=== PATIENT | male | born 1950 | race Caucasian/White ===

== ENCOUNTER → 2019-07-19 14:24 | Outpatient (CLI) | payer MEDICARE, SELFPAY | PROVIDERS: Referring Provider Orthopaedic Surgery; Visit Provider Orthopaedic Surgery | DX: R22.42 Localized swelling, mass and lump, left lower limb (principal); Z96.652 Presence of left artificial knee joint | CPT/HCPCS: 87070; 87075; 87077; 87186; 87205 ==

== ENCOUNTER 2019-09-12 09:53 | Inpatient (IN) | payer MEDICARE, SELFPAY ==
--- NOTE | 2019-08-28 10:35 | EKG12_ITS ---
Test Reason : PRE-OP Blood Pressure : / mmHG Vent. Rate : 057 BPM Atrial Rate : 057 BPM P-R Int : 162 ms QRS Dur : 088 ms QT Int : 416 ms P-R-T Axes : 017 -01 017 degrees QTc Int : 404 ms Sinus bradycardia Otherwise normal ECG Confirmed by ELIO JARVIS, LUDY ([id number]), news assignment editor HUBERT ORTIZ ([id number] on 08/29/2019 12:43:38 PM Referred By: FRANCIS HU Confirmed By:LUDY BALLARD MD
[2019-08-28 10:43] LABS: Absolute Lymphocyte Count 1.64 X10^3/uL (0.83-4.51); Absolute Neutrophil Count 4.9 X10^3/uL (2.0-7.7); Basophil# 0.04 X10^3/uL; Basophil% 0.5 % (0-1); Eosinophil# 0.23 X10^3/uL; Eosinophils% 3.1 % (0-5); Hematocrit 37.2 % (40-54); Hemoglobin 11.5 g/dL (13.0-16.5); Lymphocyte # 1.64 X10^3/ul (4.0); Lymphocyte % 22.4 % (19-41); Mean Corp Hgb Conc 30.9 g/dL (32-36); Mean Corpuscular Hgb 27.8 pg (27.0-32.0); Mean Corpuscular Volume 90.1 fL (80-94); Mean Platelet Vol. 8.1 fl (6.2-12.0); Monocyte# 0.51 X10^3/uL; NRBC Flagged by Analyzer 0 % (0-5); Neutrophil # 4.88 X10^3/uL (2.7-7.7); Neutrophil % 66.6 % (47-70); Platelet Count 236 K/mm3 (150-450); RBC Distribution Width CV 14.2 % (11.6-14.6); RBC Distribution Width SD 46.1 fl (35.1-43.9); Red Blood Count 4.13 M/mm3 (4.6-6.2); White Blood Count 7.3 K/mm3 (4.4-11.0)
[2019-08-28 11:10] LABS: Anion Gap 8 (5-15); BUN 24 mg/dL (7-18); BUN/Creat Ratio 31.3 RATIO (10-20); Calcium,Total 8.6 mg/dL (8.5-10.1); Chloride 107 mmol/L (98-107); Creatinine, Serum 0.77 mg/dL (0.70-1.30); EST Glomerular Filtration Rate 106 mL/min (>60); Est Glom Filt Rate - Afr Amer 129 mL/min (>60); Glucose 89 mg/dL (74-106); Potassium 4.3 mmol/L (3.5-5.1); Sodium Level 140 mmol/L (136-145)
--- NOTE | 2019-09-03 21:24 | HP.PCM_ITS ---
History and Physical History and Physical Patient Name: Clement Reina : 1950 From: LIBIA GIRON NP DATE OF SURGERY: 09/12/2019 SCHEDULED PROCEDURE: Explant of left total knee implants with placement of an antibiotic spacer HISTORY OF PRESENT ILLNESS: Preoperative history and physical exam was performed on August 28, 2019. This is a 68-year-old male who tested positive for an infection in the left knee. The patient's initial left total knee arthroplasty was done on December 13, [address] Deshawn Caceres. The patient states he has had pain since his initial total knee arthroplasty. He has been placed on oral antibiotics for pain and erythema in the left knee. The pain is located anterior and medial. The patient reports stiffness in the left knee since the initial surgery. The patient's recent aspiration was positive for staph capitis. The patient is currently on suppressive antibiotics, Doxycycline. He denies chest pain, fevers, chills, shortness of breath or difficulty breathing. The patient has a medical history pertinent for sleep apnea, ulcers and hypertension. After discussion with Dr. Juwan Darling the patient would like to proceed with an explant left total knee with placement of an antibiotic spacer. REVIEW OF SYSTEMS: ROS: Const: Denies change in appetite, fever,or weight change. CV: Denies chest pain, heart murmur and irregular heartbeat. Resp: Denies cough, pneumonia, SOB, tuberculosis and wheezing. GI: Reports heartburn, but denies constipation, diarrhea, difficulty swallowing, nausea, bloody stools and vomiting. : Urinary: denies incontinence. Musculo: Reports leg swelling, limp, trouble walking and weakness. Skin: Denies Raynaud's, history of shingles and tattoo. Neuro: Denies ambulatory dysfunction, dizziness, numbness/tingling and tremor. Psych: Denies anxiety, insomnia and stress. Ismael/Lymph: Denies anemia, bleeding/bruising tendency and past transfusion. Reviewed, no changes. PAST MEDICAL HISTORY: Advance Care Plan: No Advance Directives Effective Date: 09/22/2016 PMH: Medical Problems: Arthritis, Sleep Apnea, Ulcers, High Blood Pressure Accidents: None Surgical Hx: Tonsillectomy Shoulder Arthroscopy Lt - (2003) Knee Arthroscopy LT - (1999) Appendectomy, Nose LT TKR - (12/13/2016) ISAI @ [facility] Back Surgery - (12/08/2017) MOE @ [facility] Anesthesia Complications: None Assistive Devices: Glasses, Cpap Reviewed and updated. SOCIAL HISTORY: SH: Marital: .Occupation: Retired.Work Status: Retired.Hand Dominance: Right- handed. Personal Habits: Smoking: Patient is a former smoker.Cigarette Use: Former.Alcohol: Has consumed alcohol in the past.Drug Use: Denies Use.Enjoy Exercising: Exercises 1-3 X/Week. Reviewed, no changes. VITALS: Ht: 67 Wt: 233lb Wt k.689 BMI: 36.5 BP: 162/72 Pulse: 59 Resp: 16 T: 97.6 T: 36.4C ALLERGIES: No Known Drug Allergy MEDICATIONS: Doxycycline Monohydrate 100 mg 1 by mouth twice a day, Tylenol Arthritis Pain 6 50 mg prn, Osteo Bi-Flex Advanced Double Strength With Joint Shield qd, Megared Superior Benham-3 Krill Oil Extra Strength 500 mg qd, Centrum Silver 50+Men 50+Men qd, [place] 3 1po qday, Aleve 220 mg prn, Terbinafine HCL 250 mg take 1 tablet by mouth once daily, Lisinopril 20 mg take 1 tablet by mouth once daily PRE-OP EXAM: General appearance:NORMAL Other: Eyes: Conjunctivae and lids: NORMAL Pupils: ERR Ears, Nose, Mouth, and Throat: NORMAL Other: Inspection of lips, teeth and gums: NORMAL Other: Respiratory: Assessment of respiratory effort: NORMAL Other: Auscultation of lungs: clear to auscultation no wheezes, rhonchi or rales. Cardiovascular: Auscultation of heart: regular rate and rhythm, no murmurs, gallops or rubs. Gastrointestinal: Exam of abdomen: soft, nontender, nondistended bowel sounds present. Neurological: see below Psychiatric: Orientation to time, place and person: NORMAL Other: Mood and affect: NORMAL Other: PHYSICAL EXAMINATION: The patient ambulates with an antalgic gait. Large effusion in the left knee. Distal portion of the incision with underlying fluctuance. No active drainage. No erythema. Limited range of motion. Stable to varus and valgus stress testing. Sensation intact to saphenous, sural, deep and superficial peroneal and tibial nerve distributions. IMAGING STUDIES: Aspiration on July 19, 2019 was positive for Staph capitis Radiographs of left knee obtained on July 18, 2019 were compared to left knee radiographs obtained in 2019 show progressive lucency below the tibial baseplate and femur. IMPRESSION: 1. Infected left total knee arthroplasty 2. Sleep apnea 3. History of ulcers 4. Hypertension PLAN: Dr. Juwan Darling did discuss and review with the patient all treatment options including surgical versus nonsurgical. The patient does wish to proceed with the above-stated procedure. Potential risk, benefits and complications of the procedure were discussed in detail including but not limited to , infection, nerve and blood vessel damage, persistent pain, numbness, tingling, paresthesia, blood clot, pulmonary embolism and requirement for possible further surgery. The patient expressed full understanding and has no further questions for the doctor. The patient does agree to proceed with the above-stated procedure and has signed the surgery consent form. Discussed with the patient the risks associated with the COVID-19 virus including the risk of exposure while at the hospital. The patient was reassured local hospitals have low infection rates and taken all necessary precautions to limit patient exposure to COVID-19. Limiting the patient's time in the hospital may decrease their exposure to COVID-19. The patient was notified that we will need to comply with any screening or testing the hospital wishes to perform and that surgery may be delayed for any positive test results. This dictation was created using voice recognition software. Phonetic and/or grammatical errors may exist. ___ I have re-examined the patient. There are no clinical changes since date of exam. ___ See progress notes for changes. ___ Dictated on admission Date: Time: Signature:
[2019-09-12] VITALS (11 sets, daily range): BP systolic 135–177; BP diastolic 59–84; PULSE 55–74; RESP 16–18; TEMP 36.1–37.1; O2SAT 94–100; BMI 35.7; BMI 35.8
[2019-09-12 10:31] LABS: Bedside Glucose 89 mg/dL (70-110)
[2019-09-12] MEDS: Acetaminophen 500 MG Tablet 1000 MG PO ×2 (10:39→22:25)
[2019-09-12] MEDS: Celecoxib 200 MG Capsule 400 MG PO (10:40)
[2019-09-12] MEDS: Gabapentin 600 MG Tablet PO (10:40)
[2019-09-12] MEDS: Lactated Ringers 1,000 ML 999 ML IV ×3 (10:51→15:30)
[2019-09-12] MEDS: Lactated Ringers 1,000 ML 75 ML IV (10:53)
[2019-09-12] MEDS: Cefazolin 2 GM in 0.9% Normal Saline 100 ML IV (12:22)
[2019-09-12] MEDS: Lidocaine/D5W 2,000 MG/250 ML IV.SOLN 40 MG IV (12:40)
[2019-09-12] MEDS: Cefazolin 1 GM/5 ML Vial 2 GM OPERA.SITE (14:15)
[2019-09-12] MEDS: Vancomycin IV 1,000 MG/20 ML Vial 6000 MG OPERA.SITE (14:15)
--- NOTE | 2019-09-12 15:27 | RAD_ITS ---
STUDY: X-RAY - LEFT KNEE REASON FOR EXAM: Male, 68 years old. Post op left total knee replacement, ex-plant spacer. TECHNIQUE: 2 view(s) of the knee. COMPARISON: None. FINDINGS: Normal visualized distal femur. Normal visualized proximal tibia and fibula. Normal proximal tibiofibular articulation. Status post knee arthroplasty with suspected recent removal of the tibial component with subcutaneous emphysema and a surgical drain.. The soft tissue structures are unremarkable. RAD/Knee 1 or 2 Views IMPRESSION: Suspect recent removal of tibial component of arthroplasty Electronically Signed: Oswaldo Jiménez MD at 16:34 EDT Tel , Service support ,
--- NOTE | 2019-09-12 15:32 | PCM.OPRPT ---
Report of Operation Date of Procedure: 09/12/19 Pre-Operative Diagnosis: Left knee periprosthetic joint infection. Left knee sinus tract Post-Operative Diagnosis: Left knee periprosthetic joint infection. Left knee sinus tract Surgery/Procedure Performed:: Explant left total knee replacement placement of antibiotic spacer. Left knee placement of nonbiodegradable antibiotic delivery system. Left knee sinus tract excision Description of Surgical Findings:: Sinus tract was excised in its entirety. Went down to the joint into the bone. There was significant femoral-tibial bone loss. mash filter press operator: Munir Izquierdo Type of Anesthesia:: General Anesthesiologist: Amandeep Quiñones Special Medications: 2 g Ancef, 1 g TXA at incision, 1 g TXA closure, 10 mg Decadron, joint cocktail (5 mg Duramorph, 30 mL of 0.5% Ropivicaine, 1000 units of epinephrine, 30 mg of Toradol). Antibiotics in cement Specimen's removed: Specimens for culture were sent from the sinus tract and 3 specimens from the knee. Estimated Blood Loss (mL): 200 Fluids Replaced: 1600 mL crystalloid Description of Procedure: Implants used: Femur: 5 CR distal femur, [place] Tibia: 6, 16mm [place] tibial polyethylene Brief history operative indications: 68-year-old male presented to my office after having total knee replacement. Patient had chronic swelling and stiffness. He developed a draining sinus in the distal portion of the incision. At this time he was diagnosed with infection aspiration showed staph capitis. Patient wished to delay surgery. He was placed on doxycycline. We did discuss two-stage revision. Encouraged him to proceed with surgery in a timely manner. Ultimately we elected to proceed with surgery. Risk and benefits of the procedure were discussed the patient occluding but not limited to blood loss, DVTs, PEs, nervous damage, infection, the risk of anesthesia including loss of life. We also discussed reinfection, continued infection and failure rates of two-stage revision. Patient demonstrated understanding and wished to proceed. Procedure: On the date of procedure patient's left lower extremity was marked in the preoperative area. The patient was then taken back to the operating room where the patient was placed on the table in the supine position. All bony prominences were identified a well-padded. Anesthesia assumed control of the C-spine and airway and remained controlled throughout the remainder of the procedure. A tourniquet was placed on the left upper thigh and the leg was prepped in a sterile fashion. The surgeon then scrubbed at this time. Upon reentering the room right lower extremity was draped in a standard orthopedic fashion. A timeout was then called and everyone agreed upon the side, the site, the procedure to be performed, patient's identity and antibiotics given. Elevation was used to exsanguinate the extremity and the tourniquet was placed up to 250 mmHg with the knee in flexion. A midline skin incision was made using the previous incision and extending it proximally and distally to identify normal tissue planes. The sinus tract was excised and we were able to palpated down to the joint. To the medial tibia. Medial and lateral flaps were developed appropriate releases. The standard medial parapatellar arthrotomy was made and the patella was subluxed laterally. At this time an aggressive synovectomy was performed re-creating the medial gutter first, then the suprapatellar pouch than the lateral gutter. Once this was completed the knee was flexed up an osteotome was used to remove the tibial polyethylene. The remainder of the synovium was debrided. The standard deep MCL release was done and the patella scar pad was resected and lateral releases were performed. Next our attention was directed to the femur. Wear flexible osteotomes and TPS saw were used to break up the implant cement interface. This was done both medially and laterally. After this is adequately lucent bone tamp was used to remove the femur component from the end of the bone. This was done with minimal bone loss. At this time attention was now directed towards the proximal tibia. Possible osteotome and TPS saw were then used to break up the proximal tibia implant interface and stacked osteotomes were used to remove the tibial implant. This was done with minimal bone loss on the implant however, there was significant bone loss from the infection. After removing the implants patella was everted and removed. After this was done we debrided the posterior portion of the synovium. We used a bur to debride any of the synovium on the bony tissue. After thorough debridement, of the synovium we redirected our attention to the bony canals. These canals were reamed. Tibia was reamed to size 16 mm. Femur was reamed to 18 mm. Depth was measured. On the back table cement was mixed with half of the antibiotics for the spacer. 2 dowels were made for the femur and the tibia and were allowed to harden on the back table. While we are mixing the dowels 6 liters of normal saline were irrigated throughout the joint under low-pressure lavage. Then the cement was mixed in a vacuum. Zoltan Simplex cement with tobramycin was used. The wound was copiously irrigated with normal saline. We then trialed for the implants. A size 5 femur and a 60 mm size 6 tibia were selected. Final components were open. Based on the bone defects we elected to cement each 1 individually. Cement dowels were placed in the femoral and tibial canal. Cement was mixed for the femur. Antibiotics were mixed into the cement. During this time the back portion of the tibia was burred creating grooves for the cement. Once this was done we then cemented the femur into place and placed the tibia on the back table. Femoral cement was allowed to harden with the femur and the appropriate alignment. At this time we mixed cement with antibiotics for the tibia. Cement was placed on the tibia. Tibia was cemented into place. Knee was placed in extension while the cement hardened. Once the cement hardened he was taken through range of motion we are able to obtain 90 degrees flexion. Wound was once again copiously out normal saline as well as chlorhexidine solution. Drain was placed laterally. Wound was then closed using #1 Vicryl for the arthrotomy. 2-0 Vicryl for the skin and final skin closure was done with 2-0 nylon suture. A sterile compressive dressing was then placed. Patient was placed in a knee immobilizer. The patient was then awakened from anesthesia, transferred to the [facility] and transferred to the PACU for recovery. Post op plan DVT ppx: ASA 81mg BID, thigh high compression stockings Follow up: in office in 2 weeks for wound check PT: to start POD #0 at hospital for mobilization. Patient will wear a knee immobilizer. No flexion of the knee until the distal wound is adequately healed. My physician medical assistant ob gyn was a vital part of this case. He was important in appropriate retraction during the case, and protection of soft tissues during bony cuts. His intimate knowledge of the case and my steps aided in safe and expedient completion of the procedure as well as appropriate position of the leg during the case. He was also vital in assisting with closure under my direct supervision. - Complications No intraoperative complications - Admit VTE Documentation VTE Present on Admission: No VTE Mechan Device Prophylaxis: SCD's, Thigh High ZHENG Hose VTE Pharm Prophylaxis ordered?: Yes
[2019-09-12] MEDS: Scopolamine 1mg/72hr Patch 1 PATCH TD (16:47)
[2019-09-12] MEDS: Lactated Ringers 1,000 ML 125 ML IV (17:33)
--- NOTE | 2019-09-12 19:40 | NURSING ---
ended ketamine on the apr. given in OR
[2019-09-12] MEDS: oxyCODONE 5 MG Tablet PO (20:05)
--- NOTE | 2019-09-12 20:50 | PCM.RX.CS ---
Consult Type of Consult: New start Suspected Infection: Other Labs: Sodium 140 mmol/L (136-145) 08/28/19 10:22 Potassium 4.3 mmol/L (3.5-5.1) 08/28/19 10:22 Chloride 107 mmol/L (98-107) 08/28/19 10:22 Carbon Dioxide 25.0 mmol/L (21.0-32.0) 08/28/19 10:22 Anion Gap 8 (5-15) 08/28/19 10:22 BUN 24 mg/dL (7-18) H 08/28/19 10:22 Creatinine 0.77 mg/dL (0.70-1.30) 08/28/19 10:22 Est GFR (MDRD) Af Amer 129 mL/min (>60) 08/28/19 10:22 Est GFR (MDRD) Non-Af 106 mL/min (>60) 08/28/19 10:22 BUN/Creatinine Ratio 31.3 RATIO (10-20) H 08/28/19 10:22 Glucose 89 mg/dL (74-106) 08/28/19 10:22 Microbiology: Microbiology 08/28/19 10:22 Swab (Method) Nasal Screen MRSA/MSSA - Final Goal Trough: 15-20 mcg/mL Pharmacy Plan for Drug Dosing: NEW START IV VANCOMYCIN Consulting Physician: DR. COBB Indication:EXPLANT OF THE TOTAL KNEE Goal Trough:15-20 SrCr:0.77 CrCl:98.6 (USING ADJUSTED BODY WEIGHT OF 81.1) Comments: LOADING DOSE 2G X1 ADMIN ON 09/12/19 AT 1924 Vancomcyin Dose:2000MG IV Q12H TO START 09/13/19 AT 0730 Pending Level:TO BE TAKEN AT 0700 ON 09/14/19 Pharmacy Service will continue to monitor and adjust dosing as required.
[2019-09-12] MEDS: Cefazolin 1 GM/50 ML BAG IV (21:19)
[2019-09-12] MEDS: Aspirin 81 MG TAB.CHEW PO (22:24)
[2019-09-12] MEDS: Senna/Docusate Sodium 1 Tablet 2 TABLET PO (22:24)
[2019-09-12] MEDS: Ensure Surgery 237 ML LIQUID PO (22:26)
[2019-09-13 02:49] VITALS: BP 130/59; PULSE 61; RESP 18; TEMP 37; O2SAT 95
[2019-09-13] MEDS: oxyCODONE 5 MG Tablet PO ×4 (02:53→20:00)
[2019-09-13 03:06] VITALS: BMI 35.8
[2019-09-13] MEDS: Cefazolin 1 GM/50 ML BAG IV (04:49)
[2019-09-13 05:52] VITALS: BP 125/55; PULSE 68; RESP 18; TEMP 36.5; O2SAT 93
[2019-09-13] MEDS: Acetaminophen 500 MG Tablet 1000 MG PO ×3 (05:56→21:03)
[2019-09-13 06:01] VITALS: BMI 35.8
[2019-09-13 06:50] LABS: Hematocrit 30.7 % (40-54); Hemoglobin 9.9 g/dL (13.0-16.5); Mean Corp Hgb Conc 32.2 g/dL (32-36); Mean Corpuscular Hgb 28.6 pg (27.0-32.0); Mean Corpuscular Volume 88.7 fL (80-94); Mean Platelet Vol. 8.6 fl (6.2-12.0); Platelet Count 237 K/mm3 (150-450); RBC Distribution Width CV 14.1 % (11.6-14.6); RBC Distribution Width SD 45.4 fl (35.1-43.9); Red Blood Count 3.46 M/mm3 (4.6-6.2); White Blood Count 9.9 K/mm3 (4.4-11.0)
[2019-09-13 07:12] LABS: Anion Gap 4 (5-15); BUN 15 mg/dL (7-18); BUN/Creat Ratio 19.5 RATIO (10-20); Calcium,Total 8.2 mg/dL (8.5-10.1); Chloride 107 mmol/L (98-107); Creatinine, Serum 0.77 mg/dL (0.70-1.30); EST Glomerular Filtration Rate 106 mL/min (>60); Est Glom Filt Rate - Afr Amer 128 mL/min (>60); Estimated Creatinine Clearance 64.26 ml/min; Glucose 110 mg/dL (74-106); Potassium 4.2 mmol/L (3.5-5.1); Sodium Level 140 mmol/L (136-145)
[2019-09-13] MEDS: Aspirin 81 MG TAB.CHEW PO ×2 (07:28→17:31)
[2019-09-13] MEDS: Pantoprazole Sodium 20 MG Tablet PO (07:28)
[2019-09-13] MEDS: Senna/Docusate Sodium 1 Tablet 2 TABLET PO ×2 (07:28→21:03)
[2019-09-13] MEDS: Famotidine 20 MG Tablet PO (07:29)
[2019-09-13] MEDS: Lisinopril 20 MG Tablet PO (07:29)
[2019-09-13] MEDS: Ensure Surgery 237 ML LIQUID PO ×3 (07:31→17:34)
[2019-09-13 07:34] VITALS: BP 105/49; PULSE 73; RESP 16; TEMP 36.6; O2SAT 95
--- NOTE | 2019-09-13 07:58 | CON.PCM_ITS ---
Problem List (1) Infection of prosthetic left knee joint Status: Acute (2) Obstructive sleep apnea Status: Chronic (3) Hypertension Status: Chronic (4) Degenerative joint disease Status: Chronic Reason for Consult Date of Consultation: 09/13/19 Reason for Consultation: Medical management. Infected left total knee implant History of Present Illness: The patient is a 68 year old M with history of left TKR in November [address] Deshawn Caceres was admitted by orthopedic service for scheduled explant of left knee implant with placement of antibiotic spacer. Patient had the procedure on 09/12/2019. Prior to that, patient had constant pain, stiffness in left knee since initial surgery and recent aspiration was positive for staph capitis. Patient patient was on doxycycline. Inpatient, he is on ceftriaxone and vancomycin. Past Medical History Past Medical History (Chronic Problems): Chronic Problems Obstructive sleep apnea (Chronic) Hypertension (Chronic) Degenerative joint disease (Chronic) Allergies No Known Allergies Allergy (Verified 09/12/19 10:27) Home Medications: Ambulatory Orders Medication Instructions Recorded Acetaminophen [Tylenol Arthritis] 2 tab PO TID 08/29/19 Cider Vinegar [Apple Cider Vinegar] 300 mg PO DAILY 08/29/19 Glucosamine/D3/Boswellia Arabella 1 ea PO BID 08/29/19 [Osteo Bi-Flex Tablet] Krill/Om-3/Dha/Epa/Phospho/Ast 1 ea PO DAILY 08/29/19 [Megared [place]-3 Krill Oil Sfgl] Lisinopril 20 mg PO DAILY 08/29/19 Multivit-Min/FA/Lycopen/Lutein 1 ea PO DAILY 08/29/19 [Centrum Silver Men Tablet] Naproxen Sodium [Aleve] 220 mg PO TID 08/29/19 [place]-3 Fatty Acids/Fish Oil [Fish 1 ea PO TID 08/29/19 Oil 1,000 mg Capsule] Omeprazole [Prilosec] 20 mg PO DAILY 08/29/19 Terbinafine HCl 250 mg PO DAILY 08/29/19 Ubidecarenone/Vit E Acet [Co Q-10 1 ea PO DAILY 08/29/19 100 mg Softgel] Ceftriaxone 2 gm IV Q24 40 Days #40 vial 09/13/19 Smoking Status: Former smoker Tobacco Use: Cigarettes - *Family History Maternal History Items: Cancer - Breast cancer Paternal History Items: Heart Disease - Coronary artery disease Review of Systems Constitutional: Denies: Chills, Fever, Weight Change HEENT: Denies: Head Aches, Sinus Congestion, Sinus Drainage Cardiovascular: Denies: Chest Pain, Palpitations Respiratory: Denies: Cough, Shortness of breath at rest, Sputum production Gastrointestinal: Denies: Abdominal Pain, Nausea, Vomiting Genitourinary: Denies: Dysuria Musculoskeletal: Reports: Joint Pain, Joint stiffness, Joint Tenderness, Leg Pain Skin: Denies: Rash, Wounds Neurological: Reports: Balance problems. Denies: Focal weakness, Numbness, Tingling Psychiatric: Denies: Anxiety, Depression, Homicidal Ideations, Suicidal Ideations Hematologic/ Lymphatic: Denies: Easy Bruising, Easy Bleeding Patient Problems: Active and Suspected Problems Infection of prosthetic left knee joint (Acute) Objective: Physical exam General: Alert, Oriented x3, Cooperative HEENT: Atraumatic, PERRLA, EOMI, Normocephalic Oral: No Gingival or Mucosal Lesions/ Ulcerations Neck: Supple, No JVD, Negative Carotid Bruits Lungs: Air entry diminished in bilateral lung bases. No crepitation/rhonchi Cardiovascular: Regular rate, Regular Rhythm, Normal S1, Normal S2, No murmurs Abdomen: Bowel Sounds Present, Soft, Non Tender, Non-Distended : No renal angle tenderness. No suprapubic tenderness. Extremities: No edema, Capillary Refill Less than 3 Seconds Skin: No rashes, No breakdown Musculoskeletal: Left knee surgical dressing with knee immobilizer. No tenderness to other knee or hip joints. Neurological: Cranial nerves II-XII grossly intact, Deep Tendon Reflexes 2+/4 and Symmetrical, Neuro grossly intact Psych/Mental Status: Normal Affect, Appropriate - Physical Exam Vitals/I&O's: Vital Signs Temp Pulse Resp BP Pulse Ox 98 F 73 16 105/49 L 95 09/13/19 07:34 09/13/19 07:34 09/13/19 07:34 09/13/19 07:34 09/13/19 07:34 Oxygen Flow Rate (L/min) 6 Oxygen Delivery Method Room Air Weight: 228 lb 6.382 oz Body Mass Index (BMI) 35.7 Intake and Output for Last 24 Hours 09/11/19 09/12/19 09/13/19 23:59 23:59 23:59 Intake Total 5588.25 / 5588.25 855.33 / 855.33 Output Total 635 / 635 120 / 120 Balance 4953.25 / 4953.25 735.33 / 735.33 Laboratory Results 09/12/19 10:23: POC Glucose 89 09/13/19 06:10: WBC 9.9, RBC 3.46 L, Hgb 9.9 L, Hct 30.7 L, MCV 88.7, MCH 28.6, MCHC 32.2, RDW Std Deviation 45.4 H, RDW Coeff of Claudia 14.1, Plt Count 237, MPV 8.6 09/13/19 06:10: Sodium 140, Potassium 4.2, Chloride 107, Carbon Dioxide 29.0, Anion Gap 4 L, BUN 15, Creatinine 0.77, Estim Creat Clear Calc 64.26, Est GFR (MDRD) Af Amer 128, Est GFR (MDRD) Non-Af 106, BUN/Creatinine Ratio 19.5, Glucose 110 H, Calcium 8.2 L Current Medications Acetaminophen (Tylenol) 1,000 mg PO Q8 [facility] Last Admin: 09/13/19 05:56 Dose: 1,000 mg Documented by: Aspirin (Aspirin, Baby) 81 mg PO BIDCM [facility] Last Admin: 09/13/19 07:28 Dose: 81 mg Documented by: Enteral Nutritional Formula (Ensure Surgery) 237 ml PO TIDCM [facility] Last Admin: 09/13/19 07:31 Dose: 237 ml Documented by: Famotidine (Pepcid) 20 mg PO DAILY [facility] Last Admin: 09/13/19 07:29 Dose: 20 mg Documented by: Vancomycin IV Pharmacy to Dose (1 ea/ Sodium Chloride) 500 mls @ 250 mls/hr IV X1 PRN; Protocol PRN Reason: Rx to Dose Sodium Chloride () 250 mls @ 15 mls/hr IV .[id number] PRN PRN Reason: Saline Flush Last Infusion: 09/13/19 07:27 Dose: 0 mls/hr Documented by: Vancomycin HCl 2,000 mg/ (Sodium Chloride) 540 mls @ 250 mls/hr IV Q12H [facility] Last Admin: 09/13/19 07:26 Dose: 250 mls/hr Documented by: Insulin Human Lispro (Humalog Dipak (Bkc)) 1 - 6 unit SC Q4H PRN PRN; Protocol PRN Reason: BG>/= 180, SEE PROTOCOL Ketorolac Tromethamine (Toradol (Bkc)) 15 mg IV Q6H PRN PRN PRN Reason: Pain Score 1-5/10 Stop: 09/14/19 15:27 Lisinopril (Zestril) 20 mg PO DAILY [facility] Last Admin: 09/13/19 07:29 Dose: 20 mg Documented by: Meloxicam (Mobic) 7.5 mg PO BID [facility] Morphine Sulfate () 2 - 4 mg IV Q2H PRN PRN PRN Reason: Pain Score 6-10/10 Morphine Sulfate () 2 - 4 mg IV Q2H PRN PRN PRN Reason: Pain Score 6-10/10 Non-Formulary Medication (Terbinafine Hcl) 250 mg PO DAILY [facility] Ondansetron HCl (Zofran) 4 mg IV Q8H PRN PRN PRN Reason: NAUSEA Oxycodone HCl (Oxyir) 5 - 10 mg PO Q4H PRN PRN PRN Reason: Pain Score 4-10/10 Last Admin: 09/13/19 06:51 Dose: 10 mg Documented by: Pantoprazole Sodium (Protonix) 20 mg PO DAILY [facility] Last Admin: 09/13/19 07:28 Dose: 20 mg Documented by: Promethazine HCl (Phenergan) 12.5 mg IM Q6H PRN PRN; Protocol PRN Reason: NAUSEA/VOMITING Senna/Docusate Sodium (Senokot-S, Priscila-Colace) 2 tablet PO BID [facility] Last Admin: 09/13/19 07:28 Dose: 2 tablet Documented by: Sodium Chloride () 10 - 40 ml IV UD PRN PRN Reason: SALINE FLUSH Assessment/Plan All Active Problems 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 1. 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 Surgical tissue cultures are pending. Currently patient on vancomycin and ceftriaxone. Had cefazolin during surgery. Seen by ID. PICC line placement and plan for 6 weeks course of IV ceftriaxone. Stop date 10/24/2019. Pain control, PT and OT. 2. Hypertension: Blood pressure is controlled continue lisinopril 20 mg daily. 3. Obstructive sleep apnea: Incentive spirometry. CPAP while inpatient pulmonary follow-up with sleep study test/CPAP titration study. Patient is morbid obese, BMI 35. 4. Mild acute blood loss anemia, postoperative: H&H dropped from 11.5-9.9. Ferrous sulfate 325 mg daily. 5. DVT prophylaxis: Aspirin 81 mg p.o. twice daily. Discharge plan: Home with home health care for IV antibiotic. Inpatient E&M: [id number] Init Hosp L2
--- NOTE | 2019-09-13 08:45 | PN.ORTHO_ITS ---
Subjective: The patient was sitting in bed upon examination. Patient denies any chest pain, shortness of breath, dizziness, lightheadedness, nausea or vomiting, or calf pain. Pain is controlled on medications. No adverse overnight events. Overall patient is doing well this morning. Pain is been controlled on medications. Objective: Vital signs stable and afebrile. Patient is able to plantarflex and dorsiflex actively. Sensation is intact to light touch to saphenous, sural, superficial and deep peroneal, and tibial distribution. Dressing is clean dry and intact. Knee immobilizer in place. Hemovac drain currently with minimal output. There has been a total of 455 cc output Negative Homans bilaterally, negative signs and symptoms of DVT. - Physical Exam Vitals/I&O's: Vital Signs Temp Pulse Resp BP Pulse Ox 98 F 73 16 105/49 L 95 09/13/19 07:34 09/13/19 07:34 09/13/19 07:34 09/13/19 07:34 09/13/19 07:34 Oxygen Flow Rate (L/min) 6 Oxygen Delivery Method Room Air Weight: 103.6 kg Body Mass Index (BMI) 35.7 Intake and Output for Last 24 Hours 09/11/19 09/12/19 09/13/19 23:59 23:59 23:59 Intake Total 5588.25 / 5588.25 855.33 / 855.33 Output Total 635 / 635 120 / 120 Balance 4953.25 / 4953.25 735.33 / 735.33 General: Alert, Oriented x3, Cooperative, No apparent distress Laboratory Results 09/12/19 10:23: POC Glucose 89 09/13/19 06:10: WBC 9.9, RBC 3.46 L, Hgb 9.9 L, Hct 30.7 L, MCV 88.7, MCH 28.6, MCHC 32.2, RDW Std Deviation 45.4 H, RDW Coeff of Claudia 14.1, Plt Count 237, MPV 8.6 09/13/19 06:10: Sodium 140, Potassium 4.2, Chloride 107, Carbon Dioxide 29.0, Anion Gap 4 L, BUN 15, Creatinine 0.77, Estim Creat Clear Calc 64.26, Est GFR (MDRD) Af Amer 128, Est GFR (MDRD) Non-Af 106, BUN/Creatinine Ratio 19.5, Glucose 110 H, Calcium 8.2 L Current Medications Acetaminophen (Tylenol) 1,000 mg PO Q8 [facility] Last Admin: 09/13/19 05:56 Dose: 1,000 mg Documented by: Aspirin (Aspirin, Baby) 81 mg PO BIDCM [facility] Last Admin: 09/13/19 07:28 Dose: 81 mg Documented by: Enteral Nutritional Formula (Ensure Surgery) 237 ml PO TIDCM [facility] Last Admin: 09/13/19 07:31 Dose: 237 ml Documented by: Famotidine (Pepcid) 20 mg PO DAILY [facility] Last Admin: 09/13/19 07:29 Dose: 20 mg Documented by: Vancomycin IV Pharmacy to Dose (1 ea/ Sodium Chloride) 500 mls @ 250 mls/hr IV X1 PRN; Protocol PRN Reason: Rx to Dose Sodium Chloride () 250 mls @ 15 mls/hr IV .[id number] PRN PRN Reason: Saline Flush Last Infusion: 09/13/19 07:27 Dose: 0 mls/hr Documented by: Vancomycin HCl 2,000 mg/ (Sodium Chloride) 540 mls @ 250 mls/hr IV Q12H [facility] Last Admin: 09/13/19 07:26 Dose: 250 mls/hr Documented by: Insulin Human Lispro (Humalog Kwikpen (Bkc)) 1 - 6 unit SC Q4H PRN PRN; Protocol PRN Reason: BG>/= 180, SEE PROTOCOL Ketorolac Tromethamine (Toradol (Bkc)) 15 mg IV Q6H PRN PRN PRN Reason: Pain Score 1-5/10 Stop: 09/14/19 15:27 Lisinopril (Zestril) 20 mg PO DAILY [facility] Last Admin: 09/13/19 07:29 Dose: 20 mg Documented by: Meloxicam (Mobic) 7.5 mg PO BID [facility] Morphine Sulfate () 2 - 4 mg IV Q2H PRN PRN PRN Reason: Pain Score 6-10/10 Morphine Sulfate () 2 - 4 mg IV Q2H PRN PRN PRN Reason: Pain Score 6-10/10 Non-Formulary Medication (Terbinafine Hcl) 250 mg PO DAILY [facility] Ondansetron HCl (Zofran) 4 mg IV Q8H PRN PRN PRN Reason: NAUSEA Oxycodone HCl (Oxyir) 5 - 10 mg PO Q4H PRN PRN PRN Reason: Pain Score 4-10/10 Last Admin: 09/13/19 06:51 Dose: 10 mg Documented by: Pantoprazole Sodium (Protonix) 20 mg PO DAILY [facility] Last Admin: 09/13/19 07:28 Dose: 20 mg Documented by: Promethazine HCl (Phenergan) 12.5 mg IM Q6H PRN PRN; Protocol PRN Reason: NAUSEA/VOMITING Senna/Docusate Sodium (Senokot-S, Priscila-Colace) 2 tablet PO BID [facility] Last Admin: 09/13/19 07:28 Dose: 2 tablet Documented by: Sodium Chloride () 10 - 40 ml IV UD PRN PRN Reason: SALINE FLUSH Medical Necessity - Tobacco Use Smoking Status: Former smoker Tobacco Use: Cigarettes Assessment/Plan 1. S/P explant left total knee replacement with placement of antibiotic spacer with excision of left knee sinus tract POD #1 2. Continue Pain Medications: Tylenol and OxyIR 3. DVT Prophylaxis: Take 81 mg aspirin twice daily for 4 weeks postoperatively for DVT prophylaxis 4. PT/OT: Must continue with the knee immobilizer at all times. No flexion of the left knee. Patient is toe-touch weightbearing with walker 5. H & H: 9.9/30.7, asymptomatic. Secondary to acute blood loss from surgery. Preop patient hemoglobin was at 11.5 6. Continue postoperative medical management per medicine 7. Infectious disease consult: Appreciate input for management of antibiotics. Patient will require PICC line with IV antibiotics for 6 weeks postoperatively. Synovial fluid on July 19, 2019 was positive for Staphylococcus capitis. Current cultures are pending. 8. Encouraged Incentive Spirometry 9. Disposition: Patient will likely need home health care for management of IV antibiotics over the next 6 weeks. Case management is involved. Plan will be for possible discharge home tomorrow. We are also watching closely patient's dressing and if he has any drainage will likely need placement of wound VAC. Currently the dressing is clean dry and intact. We will continue to monitor.
[2019-09-13] MEDS: Ketorolac 15 MG/ML Vial IV (09:52)
--- NOTE | 2019-09-13 10:07 | PCM.HP.ID ---
Problem List (1) Infection of prosthetic left knee joint Status: Acute Reason for Consult: PJI Consulted by: Dr. Darling History of Present Illness: The patient is a 68 year old M with L knee replacement about 2.5 years ago, presented for spacer placement 09/[address] Darling. Every since knee replacement had some swelling. About 3 months ago, was kneeling on the concrete. 2 days later, noticed new area of swelling and redness over his knee. It came to a head, no associated pain, fever, or chills. Had aspiration done which showed CoNS. He wished to delay surgery, and was put on doxycycline without any improvement in knee. Taken to OR, spacer placed, feeling ok this AM. Full ROS performed and neg except as noted above. - Medical History Surgical History: reviewed Allergies/Adverse Reactions: Allergies No Known Allergies Allergy (Verified 09/12/19 10:27) Home Medications: Ambulatory Orders Medication Instructions Recorded Acetaminophen [Tylenol Arthritis] 2 tab PO TID 08/29/19 Cider Vinegar [Apple Cider Vinegar] 300 mg PO DAILY 08/29/19 Glucosamine/D3/Boswellia Arabella 1 ea PO BID 08/29/19 [Osteo Bi-Flex Tablet] Krill/Om-3/Dha/Epa/Phospho/Ast 1 ea PO DAILY 08/29/19 [Megared [place]-3 Krill Oil Sfgl] Lisinopril 20 mg PO DAILY 08/29/19 Multivit-Min/FA/Lycopen/Lutein 1 ea PO DAILY 08/29/19 [Centrum Silver Men Tablet] Naproxen Sodium [Aleve] 220 mg PO TID 08/29/19 [place]-3 Fatty Acids/Fish Oil [Fish 1 ea PO TID 08/29/19 Oil 1,000 mg Capsule] Omeprazole [Prilosec] 20 mg PO DAILY 08/29/19 Terbinafine HCl 250 mg PO DAILY 08/29/19 Ubidecarenone/Vit E Acet [Co Q-10 1 ea PO DAILY 08/29/19 100 mg Softgel] Ceftriaxone 2 gm IV Q24 40 Days #40 vial 09/13/19 - Social History SMOKING STATUS:: Former smoker Vital Signs Temp Pulse Resp BP Pulse Ox 98 F 73 16 105/49 L 95 09/13/19 07:34 09/13/19 07:34 09/13/19 07:34 07/16/20 07:34 09/13/19 07:34 Oxygen Flow Rate (L/min) 6 Oxygen Delivery Method Room Air Weight: 103.6 kg Body Mass Index (BMI) 35.7 Laboratory Tests Past 24 Hrs 09/13/19 09/13/19 06:10 06:10 WBC 9.9 RBC 3.46 L Hgb 9.9 L Hct 30.7 L MCV 88.7 MCH 28.6 MCHC 32.2 RDW Std Deviation 45.4 H RDW Coeff of Claudia 14.1 Plt Count 237 MPV 8.6 Sodium 140 Potassium 4.2 Chloride 107 Carbon Dioxide 29.0 Anion Gap 4 L BUN 15 Creatinine 0.77 Estim Creat Clear Calc 64.26 Est GFR (MDRD) Af Amer 128 Est GFR (MDRD) Non-Af 106 BUN/Creatinine Ratio 19.5 Glucose 110 H Calcium 8.2 L - Other Studies Radiology: [] reviewed Other Studies: [] Route of nutrition/ use of supplements: [] Nutritional Intake: [] IV Site: [] Robison Catheter: [] - Physical Exam General: Alert, Oriented x3, Cooperative, No apparent distress HEENT: Atraumatic, PERRLA, EOMI Neck: Supple, No Nodes Lungs: Clear to auscultation, Normal air movement Cardiovascular: Regular rate, Regular Rhythm, No murmurs Abdomen: Soft, Non Tender, Non-Distended Extremities: Edema - mild Skin: Incision - L knee wrapped IV Site: Peripheral, without redness Musculoskeletal: No Tenderness to Palpation of Joints or Extremities Neurological: Cranial nerves II-XII grossly intact - Assessment/Plan Antibiotics: [] Assessment/Plan: [] L knee Staph capitis PJI - now s/p spacer placement 09/12/[address] Darling. Prior aspiration 07/19/19 with MS-staph capitis. Surg cx pending. On vanc, completed cefazolin, will start ceftriaxone. Plan will be for picc placement and discharge home on ceftriaxone for 6 week course, stop date 10/24/19, weekly bmp, cbc, and esr. ID followup in 2-3 weeks. Will follow, thank you, d/w Dr. Darling yesterday, wrote rx and d/w block and case maker.
[2019-09-13 11:47] VITALS: BP 114/53; PULSE 67; RESP 16; TEMP 36.6; O2SAT 95
--- NOTE | 2019-09-13 14:00 | CASEMGMT ---
JHONY YOUNGBLOOD Face to Face with patient for initial transition planning/care coordination assessment. JHONY YOUNGBLOOD introduced self and role at [facility]. Patient lying in bed, alert and oriented. Patient willing to participate in assessment and is able to answer all questions appropriately. Care providers, pharmacy, and demographics verified. Patient wishes to discharge home. Discussed need for IV ATBs at discharge and different options. Patient states he would like to have HHC and administer IV ATB at home. JHONY YOUNGBLOOD provided list of infusion companies and HHC. Patient would like [facility] and [facility]. JHONY YOUNGBLOOD sent referrals to each and awaiting call back. Patient states he has no further needs or concerns at this time. CM to follow for discharge planning needs that may arise. PCP: Morris Specialists: berenice Darling Pharmacy: [facility] Insurance: [facility] Prescription Benefit: none Living Will/HPOA: none LNOK: Living Arrangements: Patient lives with in a 1 story home with 2 steps to enter the home. Patient states he was independent at home prior to surgery Transportation: /sister DME/HHC: Patient states he has rollator and cpap at home. Patient states he has had HHC for therapy previously but not sure of company name. Disposition Plan: Patient to discharge home with HHC, family support, and follow-up plans in place. Eileen PAULINO, RN, CM
[2019-09-13 14:34] VITALS: BP 132/54; PULSE 73; RESP 16; TEMP 36.6; O2SAT 100
[2019-09-13 20:01] VITALS: BP 157/54; PULSE 82; RESP 18; TEMP 37.4; O2SAT 95
[2019-09-14 02:30] VITALS: BP 103/76; PULSE 70; RESP 18; TEMP 36.6; O2SAT 96
[2019-09-14] MEDS: Acetaminophen 500 MG Tablet 1000 MG PO (05:45)
[2019-09-14] MEDS: oxyCODONE 5 MG Tablet PO ×2 (05:45→10:11)
[2019-09-14 07:15] LABS: Hematocrit 28.9 % (40-54); Hemoglobin 9.3 g/dL (13.0-16.5); Mean Corp Hgb Conc 32.2 g/dL (32-36); Mean Corpuscular Hgb 28.2 pg (27.0-32.0); Mean Corpuscular Volume 87.6 fL (80-94); Mean Platelet Vol. 8.5 fl (6.2-12.0); Platelet Count 209 K/mm3 (150-450); RBC Distribution Width SD 44.3 fl (35.1-43.9); White Blood Count 8.4 K/mm3 (4.4-11.0)
--- NOTE | 2019-09-14 07:15 | PCM.PN.ORT ---
Patient Problems: Active and Suspected Problems Infection of prosthetic left knee joint (Acute) Subjective: The patient was sitting in bed upon examination. Patient denies any chest pain, shortness of breath, dizziness, lightheadedness, nausea or vomiting, or calf pain. Pain is controlled on medications. No adverse overnight events. Patient is already been set up with PICC line for IV antibiotics. Infectious disease has been consulted and has seen the patient and plan is for ceftriaxone 6 weeks. Patient overall is doing better today. There is been less output in the Hemovac drain. Patient is wishing to go home today. Objective: Vital signs stable and afebrile. Patient is able to plantarflex and dorsiflex actively. Sensation is intact to light touch to saphenous, sural, superficial and deep peroneal, and tibial distribution. Main dressing is clean dry and intact. Hemovac drain: Minimal output in Hemovac drain. There has been an decrease in output with only 200 cc since yesterday. Knee immobilizer in place Negative Homans bilaterally, negative signs and symptoms of DVT. - Physical Exam Vitals/I&O's: Vital Signs Temp Pulse Resp BP Pulse Ox 98 F 70 18 103/76 96 09/14/19 02:30 09/14/19 02:30 09/14/19 02:30 09/14/19 02:30 09/14/19 02:30 Oxygen Flow Rate (L/min) 6 Oxygen Delivery Method Room Air Weight: 103.6 kg Body Mass Index (BMI) 35.7 Intake and Output for Last 24 Hours 09/12/19 09/13/19 09/14/19 23:59 23:59 23:59 Intake Total 5588.25 / 5588.25 3236.08 / 3236.08 0 / 0 Output Total 635 / 635 260 / 260 60 / 60 Balance 4953.25 / 4953.25 2976.08 / 2976.08 -60 / -60 General: Alert, Oriented x3, Cooperative, No apparent distress Microbiology Past 72 Hours 09/12/19 13:28 Other - Other Gram Stain - Final 09/12/19 13:28 Other - Other Wound Culture - Preliminary No growth-Final to follow 09/12/19 13:27 Other - Other Gram Stain - Final 09/12/19 13:27 Other - Other Wound Culture - Preliminary No growth-Final to follow 09/12/19 13:25 Other - Other Gram Stain - Final 09/12/19 13:25 Other - Other Wound Culture - Preliminary No growth-Final to follow 09/12/19 13:23 Other - Other Gram Stain - Final 09/12/19 13:23 Other - Other Wound Culture - Preliminary No growth-Final to follow Laboratory Results 09/14/19 07:04: WBC Pending, RBC Pending, Hgb Pending, Hct Pending, MCV Pending, MCH Pending, MCHC Pending, RDW Std Deviation Pending, RDW Coeff of Claudia Pending, Plt Count Pending 09/14/19 07:04: Vancomycin Trough Pending Current Medications Acetaminophen (Tylenol) 1,000 mg PO Q8 [facility] Last Admin: 09/14/19 05:45 Dose: 1,000 mg Documented by: Aspirin (Aspirin, Baby) 81 mg PO BIDCM [facility] Last Admin: 09/13/19 17:31 Dose: 81 mg Documented by: Enteral Nutritional Formula (Ensure Surgery) 237 ml PO TIDCM [facility] Last Admin: 09/13/19 17:34 Dose: 237 ml Documented by: Famotidine (Pepcid) 20 mg PO DAILY [facility] Last Admin: 09/13/19 07:29 Dose: 20 mg Documented by: Heparin Sodium (Beef Lung) () 50 units IV UD PRN PRN Reason: PICC Line Heparin Flush Vancomycin IV Pharmacy to Dose (1 ea/ Sodium Chloride) 500 mls @ 250 mls/hr IV X1 PRN; Protocol PRN Reason: Rx to Dose Sodium Chloride () 250 mls @ 15 mls/hr IV .[id number] PRN PRN Reason: Saline Flush Last Infusion: 09/14/19 03:48 Dose: Infused Documented by: Vancomycin HCl 2,000 mg/ (Sodium Chloride) 540 mls @ 250 mls/hr IV Q12H [facility] Last Infusion: 09/13/19 21:30 Dose: Infused Documented by: Ceftriaxone Sodium 2 gm/ (Sodium Chloride) 50 mls @ 100 mls/hr IV Q24 [facility] Last Infusion: 09/13/19 12:36 Dose: Infused Documented by: Insulin Human Lispro (Humalog Kwikpen (Bkc)) 1 - 6 unit SC Q4H PRN PRN; Protocol PRN Reason: BG>/= 180, SEE PROTOCOL Ketorolac Tromethamine (Toradol (Bkc)) 15 mg IV Q6H PRN PRN PRN Reason: Pain Score 1-5/10 Stop: 09/14/19 15:27 Last Admin: 09/13/19 09:52 Dose: 15 mg Documented by: Lisinopril (Zestril) 20 mg PO DAILY [facility] Last Admin: 09/13/19 07:29 Dose: 20 mg Documented by: Meloxicam (Mobic) 7.5 mg PO BID [facility] Morphine Sulfate () 2 - 4 mg IV Q2H PRN PRN PRN Reason: Pain Score 6-10/10 Morphine Sulfate () 2 - 4 mg IV Q2H PRN PRN PRN Reason: Pain Score 6-10/10 Non-Formulary Medication (Terbinafine Hcl) 250 mg PO DAILY [facility] Ondansetron HCl (Zofran) 4 mg IV Q8H PRN PRN PRN Reason: NAUSEA Oxycodone HCl (Oxyir) 5 - 10 mg PO Q4H PRN PRN PRN Reason: Pain Score 4-10/10 Last Admin: 09/14/19 05:45 Dose: 10 mg Documented by: Pantoprazole Sodium (Protonix) 20 mg PO DAILY [facility] Last Admin: 09/13/19 07:28 Dose: 20 mg Documented by: Promethazine HCl (Phenergan) 12.5 mg IM Q6H PRN PRN; Protocol PRN Reason: NAUSEA/VOMITING Senna/Docusate Sodium (Senokot-S, Priscila-Colace) 2 tablet PO BID [facility] Last Admin: 09/13/19 21:03 Dose: 2 tablet Documented by: Sodium Chloride () 10 - 40 ml IV UD PRN PRN Reason: SALINE FLUSH Sodium Chloride () 10 - 40 ml IV UD PRN PRN Reason: Open End PICC Flush Sodium Chloride (0.9% Nacl (Sterile) Posiflush) 10 - 40 ml IV UD PRN PRN Reason: Port access or dressing change Medical Necessity - Tobacco Use Smoking Status: Former smoker Tobacco Use: Cigarettes Assessment/Plan All Active Problems Infection of prosthetic left knee joint (Acute) 1. S/P explant left total knee replacement with placement of antibiotic spacer with excision of left knee sinus tract POD #2 2. Continue Pain Medications: Tylenol, meloxicam, and OxyIR 3. DVT Prophylaxis: Take 81 mg aspirin twice daily for 4 weeks postoperatively for DVT prophylaxis 4. PT/OT: Must continue with the knee immobilizer at all times. No flexion of the left knee. Patient is toe-touch weightbearing with walker 5. H & H: Lab work was just obtained. Will monitor. Secondary to acute blood loss from surgery. Preop patient hemoglobin was at 11.5 6. Continue postoperative medical management per medicine 7. Infectious disease consult: Appreciate input for management of antibiotics. PICC line has been established. Plan will be for ceftriaxone for 6 weeks with stop date on October 24, 2019. Patient will need continued follow-up with infectious disease for lab work. 8. Hemovac drain was removed. There is been decrease in output from 455 cc to 200 cc. Steri-Strip was placed over wound VAC site. Compressive dressing with ABD was placed. 9. Disposition: Plan will be for discharge home today. Patient is all set up from antibiotics and PICC line. Patient will continue with the knee immobilizer at all times. He can loosen it at home to ice only. I explained to him there is to be no range of motion of the left knee. He has not to get in the shower. He can do sponge bath. Patient will continue with the Mepilex dressing for an additional 5 days. Once the Mepilex dressing is removed he can use nonstick pads or ABD. No tape on the skin. Prescriptions will be E scribed to [facility]. Patient will follow-up per postop instructions. He will continue with weightbearing restrictions toe-touch on the left lower extremity with walker. I have reviewed the [place] Automated Rx Reporting System (OARRS) report for this patient for refill pattern and other prescriber involvement as part of the appropriate surveillance for the provision of acute and chronic controlled medications. The report was requested and reviewed on the date of this entry and was considered in the prescribing process.
--- NOTE | 2019-09-14 07:23 | PCM.DC.TKR ---
Discharge Diet: No Restrictions Discharge Activity: May Not Drive Ice area for (Minutes): 20 - every hour while awake. Weight Bearing Status: Toe touch weight bearing - with walker Elevate: Operative Extremity Additional Activity Instructions:: Wear elastic stockings for 2 weeks after your surgery. Call your doctor if your incision/area has: Continuous Slow Oozing, Sudden Increased Bleeding, Increased Pain/ Swelling, Increased Redness, Foul Smelling Discharge Call your doctor if you observe: Fever of 101 or Higher, Coldness, Increased Pain, Numbness or Tingling, Change in Color, Calf discomfort, Uncontrolled pain Remove Dressing in (days):: 5 - Okay to remove dressing on September 19, 2019 man I do not Additional Instructions: Follow postoperative instructions per orthopedics Continue with knee immobilizer at all times: Okay to loosen for ice only. There is to be no range of motion of the left knee. Continue with walker and only toe-touch weightbearing on the left lower extremity. After removal of dressing on September 19, 2019, okay to use nonstick bandage over the incision between the ZHENG hose. Do not place any tape on the skin. Allergies/Adverse Reactions: Allergies No Known Allergies Allergy (Verified 09/12/19 10:27) Medications to take at Discharge Lisinopril 20 mg PO DAILY 08/29/19 Omeprazole [Prilosec] 20 mg PO DAILY 08/29/19 Terbinafine HCl 250 mg PO DAILY 08/29/19 Ceftriaxone 2 gm IV Q24 40 Days #40 vial 09/13/19 Acetaminophen [Tylenol] 1,000 mg PO Q8 #100 tab 09/14/19 Aspirin [Aspirin, Baby] 81 mg PO BIDCM #60 tab 09/14/19 Meloxicam [Mobic] 7.5 mg PO BID #60 tab 09/14/19 Oxycodone [Oxyir] 5 - 10 mg PO Q4H PRN PRN 5 Days #60 tablet 09/14/19 Senna/Docusate Sodium [Senokot-S] 2 tab PO BID #10 tab 09/14/19 The following prescriptions were given: Aspirin [Aspirin, Baby] 81 mg PO BIDCM #60 tab Transmission Status: Pending to [facility] Ceftriaxone 2 gm IV Q24 40 Days #40 vial Prescription Printed Meloxicam [Mobic] 7.5 mg PO BID #60 tab Transmission Status: Pending to [facility] Oxycodone [Oxyir] 5 - 10 mg PO Q4H PRN PRN 5 Days #60 tablet PRN Reason: Pain Score 4-10/10 Transmission Status: Sent to [facility] Senna/Docusate Sodium [Senokot-S] 2 tab PO BID #10 tab Transmission Status: Pending to [facility] Acetaminophen [Tylenol] 1,000 mg PO Q8 #100 tab Transmission Status: Pending to [facility] Primary Care Physician: Rhoda Caceres MD [Primary Care Provider] - Test Results: Test results from this visit will be discussed in further detail at your follow-up appointment, if applicable. Please Follow Up With: Janelle Alex NP-C When: 09/26/19 @ 8:15 am Please Follow Up With: Jefferson Drake MD When: follow up in 2 weeks needs to be scheduled
[2019-09-14] MEDS: 0.9% Saline Lock 10 ML Syringe IV ×2 (07:33→10:11)
[2019-09-14 07:56] LABS: Vancomycin, Trough Level 15.1 ug/mL (5.0-15.0)
[2019-09-14 08:00] VITALS: PULSE 75; O2SAT 95
--- NOTE | 2019-09-14 08:06 | PCM.RX.CS ---
Consult Pharmacy has been consulted to manage selected antiobiotic: Vancomycin Type of Consult: Follow-up Labs: Sodium 140 mmol/L (136-145) 09/13/19 06:10 Potassium 4.2 mmol/L (3.5-5.1) 09/13/19 06:10 Chloride 107 mmol/L (98-107) 09/13/19 06:10 Carbon Dioxide 29.0 mmol/L (21.0-32.0) 09/13/19 06:10 Anion Gap 4 (5-15) L 09/13/19 06:10 BUN 15 mg/dL (7-18) 09/13/19 06:10 Creatinine 0.77 mg/dL (0.70-1.30) 09/13/19 06:10 Est GFR (MDRD) Af Amer 128 mL/min (>60) 09/13/19 06:10 Est GFR (MDRD) Non-Af 106 mL/min (>60) 09/13/19 06:10 BUN/Creatinine Ratio 19.5 RATIO (-20) 09/13/19 06:10 Glucose 110 mg/dL (74-106) H 09/13/19 06:10 Vancomycin Trough 15.1 ug/mL (5.0-15.0) H 09/14/19 07:04 Microbiology: Microbiology 09/12/19 13:28 Other - Other Gram Stain - Final 09/12/19 13:28 Other - Other Wound Culture - Preliminary No growth-Final to follow 09/12/19 13:27 Other - Other Gram Stain - Final 09/12/19 13:27 Other - Other Wound Culture - Preliminary No growth-Final to follow 09/12/19 13:25 Other - Other Gram Stain - Final 09/12/19 13:25 Other - Other Wound Culture - Preliminary No growth-Final to follow 09/12/19 13:23 Other - Other Gram Stain - Final 09/12/19 13:23 Other - Other Wound Culture - Preliminary No growth-Final to follow 08/28/19 10:22 Swab (Method) Nasal Screen MRSA/MSSA - Final Weight used for dosin kg Goal Trough: 15-20 mcg/mL Pharmacy Plan for Drug Dosing: Trough in goal range. Continue and recheck trough in 4 days. Pharmacy Service will continue to monitor and adjust dosing as required. Follow-Up Labs: Trough Vancomycin - 09/17 @ 0700
[2019-09-14 08:30] VITALS: BP 160/69; PULSE 75; RESP 18; TEMP 36.9; O2SAT 95
[2019-09-14] MEDS: Aspirin 81 MG TAB.CHEW PO (08:47)
--- NOTE | 2019-09-14 09:35 | PCM.PN.HOSP ---
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 No fever. Physical exam General: Alert, Oriented x3, Cooperative HEENT: Atraumatic, PERRLA, EOMI, Normocephalic Oral: No Gingival or Mucosal Lesions/ Ulcerations Neck: Supple, No JVD, Negative Carotid Bruits Lungs: Air entry diminished in bilateral lung bases. No crepitation/rhonchi. No respiratory distress Cardiovascular: Regular rate, Regular Rhythm, Normal S1, Normal S2, No murmurs Abdomen: Bowel Sounds Present, Soft, Non Tender, Non-Distended : No renal angle tenderness. No suprapubic tenderness. Extremities: No edema, Capillary Refill Less than 3 Seconds Skin: No rashes, No breakdown Musculoskeletal: Left knee on immobilizer. Surgical dressing is dry. Left leg neurovascular bundle intact. No Tenderness to Palpation of Joints or Extremities Neurological: Cranial nerves II-XII grossly intact, Deep Tendon Reflexes 2+/4 and Symmetrical, Neuro grossly intact Psych/Mental Status: Normal Affect, Appropriate Vitals/I&O's: Vital Signs Temp Pulse Resp BP Pulse Ox 98.5 F 75 18 160/69 H 95 09/14/19 08:30 09/14/19 08:30 09/14/19 08:30 09/14/19 08:30 09/14/19 08:30 Oxygen Flow Rate (L/min) 6 Oxygen Delivery Method Room Air Weight: 228 lb 6.382 oz Body Mass Index (BMI) 35.7 Intake and Output for Last 24 Hours 09/12/19 09/13/19 09/14/19 23:59 23:59 23:59 Intake Total 5588.25 / 5588.25 3236.08 / 3236.08 0.25 / 0.25 Output Total 635 / 635 260 / 260 60 / 60 Balance 4953.25 / 4953.25 2976.08 / 2976.08 -59.75 / -59.75 Microbiology Past 72 Hours 09/12/19 13:28 Other - Other Gram Stain - Final 09/12/19 13:28 Other - Other Wound Culture - Preliminary No growth-Final to follow 09/12/19 13:27 Other - Other Gram Stain - Final 09/12/19 13:27 Other - Other Wound Culture - Preliminary No growth-Final to follow 09/12/19 13:25 Other - Other Gram Stain - Final 09/12/19 13:25 Other - Other Wound Culture - Preliminary No growth-Final to follow 09/12/19 13:23 Other - Other Gram Stain - Final 09/12/19 13:23 Other - Other Wound Culture - Preliminary No growth-Final to follow Laboratory Results 09/14/19 07:04: WBC 8.4, RBC 3.30 L, Hgb 9.3 L, Hct 28.9 L, MCV 87.6, MCH 28.2, MCHC 32.2, RDW Std Deviation 44.3 H, RDW Coeff of Claudia 14.0, Plt Count 209, MPV 8.5 09/14/19 07:04: Vancomycin Trough 15.1 H Current Medications Acetaminophen (Tylenol) 1,000 mg PO Q8 [facility] Last Admin: 09/14/19 05:45 Dose: 1,000 mg Documented by: Aspirin (Aspirin, Baby) 81 mg PO BIDCM [facility] Last Admin: 09/14/19 08:47 Dose: 81 mg Documented by: Enteral Nutritional Formula (Ensure Surgery) 237 ml PO TIDCM [facility] Last Admin: 09/14/19 08:48 Dose: Not Given Documented by: Famotidine (Pepcid) 20 mg PO DAILY [facility] Last Admin: 09/13/19 07:29 Dose: 20 mg Documented by: Heparin Sodium (Beef Lung) () 50 units IV UD PRN PRN Reason: PICC Line Heparin Flush Vancomycin IV Pharmacy to Dose (1 ea/ Sodium Chloride) 500 mls @ 250 mls/hr IV X1 PRN; Protocol PRN Reason: Rx to Dose Sodium Chloride () 250 mls @ 15 mls/hr IV .[id number] PRN PRN Reason: Saline Flush Last Infusion: 09/14/19 07:32 Dose: 0 mls/hr Documented by: Vancomycin HCl 2,000 mg/ (Sodium Chloride) 540 mls @ 250 mls/hr IV Q12H [facility] Last Admin: 09/14/19 07:32 Dose: 250 mls/hr Documented by: Ceftriaxone Sodium 2 gm/ (Sodium Chloride) 50 mls @ 100 mls/hr IV Q24 [facility] Last Infusion: 09/13/19 12:36 Dose: Infused Documented by: Insulin Human Lispro (Humalog Kwcandipen (Bkc)) 1 - 6 unit SC Q4H PRN PRN; Protocol PRN Reason: BG>/= 180, SEE PROTOCOL Ketorolac Tromethamine (Toradol ([facility])) 15 mg IV Q6H PRN PRN PRN Reason: Pain Score 1-5/10 Stop: 09/14/19 15:27 Last Admin: 09/13/19 09:52 Dose: 15 mg Documented by: Lisinopril (Zestril) 20 mg PO DAILY [facility] Last Admin: 09/13/19 07:29 Dose: 20 mg Documented by: Meloxicam (Mobic) 7.5 mg PO BID [facility] Morphine Sulfate () 2 - 4 mg IV Q2H PRN PRN PRN Reason: Pain Score 6-10/10 Morphine Sulfate () 2 - 4 mg IV Q2H PRN PRN PRN Reason: Pain Score 6-10/10 Ondansetron HCl (Zofran) 4 mg IV Q8H PRN PRN PRN Reason: NAUSEA Oxycodone HCl (Oxyir) 5 - 10 mg PO Q4H PRN PRN PRN Reason: Pain Score 4-10/10 Last Admin: 09/14/19 05:45 Dose: 10 mg Documented by: Pantoprazole Sodium (Protonix) 20 mg PO DAILY [facility] Last Admin: 09/13/19 07:28 Dose: 20 mg Documented by: Promethazine HCl (Phenergan) 12.5 mg IM Q6H PRN PRN; Protocol PRN Reason: NAUSEA/VOMITING Senna/Docusate Sodium (Senokot-S, Priscila-Colace) 2 tablet PO BID [facility] Last Admin: 09/13/19 21:03 Dose: 2 tablet Documented by: Sodium Chloride () 10 - 40 ml IV UD PRN PRN Reason: SALINE FLUSH Last Admin: 09/14/19 07:33 Dose: 10 ml Documented by: Sodium Chloride () 10 - 40 ml IV UD PRN PRN Reason: Open End PICC Flush Sodium Chloride (0.9% Nacl (Sterile) Posiflush) 10 - 40 ml IV UD PRN PRN Reason: Port access or dressing change Terbinafine HCl (Terbinafine Hcl) 250 mg PO DAILY [facility] Vital Signs/Narrative: Vital Signs Temp Pulse Resp BP Pulse Ox 09/14/19 08:30 98.5 F 75 18 160/69 H 95 09/14/19 08:00 75 95 Medical Necessity - Tobacco Use Smoking Status: Former smoker Tobacco Use: Cigarettes Assessment/Plan All Active Problems 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 1. 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 Surgical tissue cultures are pending. Patient had vancomycin and IV cefazolin. Currently ceftriaxone 2 g IV daily. Seen by ID. PICC line and plan for 6 weeks course of IV ceftriaxone. Stop date 10/24/2019. Pain control, PT and OT. 2. Hypertension: BP elevated. Continue lisinopril 20 mg daily. Started on HCTZ 12.5 mg times 1 dose. Follow-up with PCP to further titrate the dose as per the blood pressure. Blood pressure fluctuates between 103/76-177/76. 3. Obstructive sleep apnea: Incentive spirometry. CPAP while inpatient pulmonary follow-up with sleep study test/CPAP titration study. Patient is morbid obese, BMI 35. 4. Mild acute blood loss anemia, postoperative: H&H dropped from 11.5-9.9. Ferrous sulfate 325 mg daily. 5. DVT prophylaxis: Aspirin 81 mg p.o. twice daily. Patient is scheduled for discharge home with home health care Inpatient E&M: [id number] [facility] L2
--- NOTE | 2019-09-14 10:00 | CASEMGMT ---
JHONY YOUNGBLOOD received called from [facility] and they are able to accept. JHONY YOUNGBLOOD called [facility] infusion regarding ATB cost. IV Rocephin cost is $30 per day. JHONY YOUNGBLOOD updated patient and he is willing to pay cost of ATB. JHONY YOUNGBLOOD called both [facility] and [facility] infusion and confirmed start of care for tomorrow 09/14.
[2019-09-14] MEDS: Famotidine 20 MG Tablet PO (10:12)
[2019-09-14] MEDS: Senna/Docusate Sodium 1 Tablet 2 TABLET PO (10:12)
[2019-09-14] MEDS: Pantoprazole Sodium 20 MG Tablet PO (10:12)
[2019-09-14] MEDS: Meloxicam 7.5 MG Tablet PO (10:12)
[2019-09-14] MEDS: TERBINAFINE HCL 250 MG TABLET PO (10:13)
--- NOTE | 2019-09-14 10:39 | PHA.DC.MC ---
Pharmacy Service has performed discharge medication reconciliation and counseling for this patient. The patient was counseled on the following discharge medications and changes in medications for homegoing were reviewed. 1. Rocephin 2. Tylenol 3. Aspirin 4. Mobic 5. Oxycodone 6. Senna/Doc The Reason for Use, instructions for use, and potential side effects were reviewed for all new medications. The patient's questions regarding all of their medications were answered. The patient was able to verbally demonstrate an understanding of their discharge medications. Home Medications Lisinopril 20 mg PO DAILY 08/29/19 Omeprazole [Prilosec] 20 mg PO DAILY 08/29/19 Terbinafine HCl 250 mg PO DAILY 08/29/19 Ceftriaxone 2 gm IV Q24 40 Days #40 vial 09/13/19 Acetaminophen [Tylenol] 1,000 mg PO Q8 #100 tab 09/14/19 Aspirin [Aspirin, Baby] 81 mg PO BIDCM #60 tab 09/14/19 Meloxicam [Mobic] 7.5 mg PO BID #60 tab 09/14/19 Oxycodone [Oxyir] 5 - 10 mg PO Q4H PRN PRN 5 Days #60 tab 09/14/19 Senna/Docusate Sodium [Senokot-S] 2 tab PO BID #10 tab 09/14/19 The patient's discharge medication list was reviewed for discrepancies and discrepancies were resolved.
[2019-09-14] MEDS: Lisinopril 20 MG Tablet PO (11:10)
== END 2019-09-14 12:25 | disposition home health service (06) | DRG 468 ==
LOC: ACINP 09:54 → MS3 09-13 08:37
PROVIDERS: Anesthesiology; Internal Medicine Infectious Disease; Admitting Provider Specialist; PCP Family Medicine; Referring Provider Specialist; Visit Provider Specialist
PROC: 0SPD0JZ Removal of Synthetic Substitute from Left Knee Joint, Open Approach (ICD-10-PCS; principal; 2019-09-12 11:35)
DX: T84.54XA Infection and inflammatory reaction due to internal left knee prosthesis, initial encounter (principal); B95.61 Methicillin susceptible Staphylococcus aureus infection as the cause of diseases classified elsewhere; Y83.1 Surgical operation with implant of artificial internal device as the cause of abnormal reaction of the patient, or of later complication, without mention of misadventure at the time of the procedure; I10 Essential (primary) hypertension; G47.33 Obstructive sleep apnea (adult) (pediatric); Z79.2 Long term (current) use of antibiotics; Z79.899 Other long term (current) drug therapy; Z87.891 Personal history of nicotine dependence; Z11.59 Encounter for screening for other viral diseases
CPT/HCPCS: 36415; 36569; 73560; 80048; 80202; 82962; 85025; 85027; 87015; 87070; 87075; 87077; 87081; 87102; 87116; 87186; 87205; 87206; 87635; 93005; 97116; 97162; 97166; 97530; 99251; 99406; C1776; G2023; J7040; J7050; J7120; A4216; G0463; J0696; J2405; J3260; U0003

== ENCOUNTER → 2019-10-10 15:57 | Outpatient (CLI) | payer MEDICARE, OTHER, SELFPAY ==
[2019-09-12 10:28] VITALS: BMI 35.7
--- NOTE | 2019-10-10 16:00 | VDLE_ITS ---
Reason For Study: Pain Procedure LEFT Exam performed in department. GSV is normal. A preliminary report was called and/or faxed CFV is compressible, spontaneous, phasic, to Dr. Darling. competent, and demonstrates normal augmentation. FV is compressible, spontaneous, phasic, competent and demonstrates normal augmentation. POP V is compressible, spontaneous, phasic, competent and demonstrates normal augmentation. T/P Trunk is compressible. PTV is compressible. LT PerV is compressible. Interpretation Summary Deep veins of the left lower extremity are patent and compressible segmentally. There is no evidence of left lower extremity deep vein thrombosis. Valvular competence appears intact within the proximal deep venous system on the left . The left great saphenous vein appears patent and compressible segmentally. Ordering Physician: Juwan Darling Referring Physician: Alejandro Caceres Performed By: Chyna Gonzales, TEE, RVT
== END ==
PROVIDERS: PCP Family Medicine; Referring Provider Specialist; Visit Provider Specialist
DX: M79.662 Pain in left lower leg (principal)
CPT/HCPCS: 93971

== ENCOUNTER → 2019-10-25 10:09 | Outpatient (CLI) | payer MEDICARE, SELFPAY ==
[2019-09-12 10:28] VITALS: BMI 35.7
[2019-10-25 10:40] LABS: Erythrocyte Sedimentation Rate 4 mm/hr (0-20)
[2019-10-25 10:42] LABS: Absolute Lymphocyte Count 1.79 X10^3/uL (0.83-4.51); Absolute Neutrophil Count 3.7 X10^3/uL (2.0-7.7); Basophil# 0.08 X10^3/uL; Basophil% 1.2 % (0-1); Eosinophil# 0.38 X10^3/uL; Eosinophils% 5.9 % (0-5); Hematocrit 37.3 % (40-54); Hemoglobin 12.1 g/dL (13.0-16.5); Lymphocyte # 1.79 X10^3/ul (4.0); Lymphocyte % 27.7 % (19-41); Mean Corp Hgb Conc 32.4 g/dL (32-36); Mean Corpuscular Hgb 28.9 pg (27.0-32.0); Mean Corpuscular Volume 89.2 fL (80-94); Mean Platelet Vol. 8.2 fl (6.2-12.0); Monocyte# 0.51 X10^3/uL; Monocyte% 7.9 % (0-10); NRBC Flagged by Analyzer 0 % (0-5); Neutrophil # 3.67 X10^3/uL (2.7-7.7); Neutrophil % 56.8 % (47-70); Platelet Count 224 K/mm3 (150-450); RBC Distribution Width CV 13.6 % (11.6-14.6); Red Blood Count 4.18 M/mm3 (4.6-6.2); White Blood Count 6.5 K/mm3 (4.4-11.0)
[2019-10-25 11:08] LABS: ALB/GLOB Ratio 1.1 RATIO (0.9-2.4); AST(SGOT) 14 U/L (15-37); Alanine Aminotransfer ALT/SGPT 18 U/L (16-61); Albumin, Serum 3.9 g/dL (3.2-5.0); Alkaline Phosphatase 118 U/L (45-117); Anion Gap 3 (5-15); BUN 19 mg/dL (7-18); BUN/Creat Ratio 19.2 RATIO (10-20); CRP < 2.90 mg/L (0.0-3.0); Calcium,Total 8.7 mg/dL (8.5-10.1); Chloride 109 mmol/L (98-107); Creatinine, Serum 0.99 mg/dL (0.70-1.30); EST Glomerular Filtration Rate 79 mL/min (>60); Est Glom Filt Rate - Afr Amer 96 mL/min (>60); Globulin 3.4 g/dL (2.2-4.2); Glucose 88 mg/dL (74-106); Potassium 4.5 mmol/L (3.5-5.1); Protein, Total 7.3 g/dL (6.4-8.2); Sodium Level 140 mmol/L (136-145)
== END ==
LOC: LAB 10:12
PROVIDERS: PCP Family Medicine; Referring Provider Specialist; Visit Provider Specialist
DX: T84.59XS Infection and inflammatory reaction due to other internal joint prosthesis, sequela (principal); B35.1 Tinea unguium; I10 Essential (primary) hypertension
CPT/HCPCS: 36415; 80053; 85025; 85652; 86140

== ENCOUNTER → 2019-11-08 10:42 | Outpatient (CLI) | payer MEDICARE, SELFPAY ==
[2019-09-12 10:28] VITALS: BMI 35.7
[2019-11-08 11:29] LABS: Erythrocyte Sedimentation Rate 1 mm/hr (0-20)
[2019-11-08 11:32] LABS: Absolute Lymphocyte Count 1.97 X10^3/uL (0.83-4.51); Absolute Neutrophil Count 3.6 X10^3/uL (2.0-7.7); Basophil# 0.06 X10^3/uL; Basophil% 0.9 % (0-1); Eosinophil# 0.41 X10^3/uL; Eosinophils% 6.1 % (0-5); Lymphocyte # 1.97 X10^3/ul (4.0); Lymphocyte % 29.4 % (19-41); Mean Corp Hgb Conc 32.4 g/dL (32-36); Mean Corpuscular Hgb 29.3 pg (27.0-32.0); Mean Corpuscular Volume 90.2 fL (80-94); Mean Platelet Vol. 8.5 fl (6.2-12.0); Monocyte# 0.64 X10^3/uL; Monocyte% 9.6 % (0-10); NRBC Flagged by Analyzer 0 % (0-5); Neutrophil % 53.9 % (47-70); Platelet Count 230 K/mm3 (150-450); RBC Distribution Width CV 13.7 % (11.6-14.6); RBC Distribution Width SD 45.1 fl (35.1-43.9); White Blood Count 6.7 K/mm3 (4.4-11.0)
[2019-11-08 12:16] LABS: CRP < 2.90 mg/L (0.0-3.0)
== END ==
PROVIDERS: PCP Family Medicine; Referring Provider Specialist; Visit Provider Specialist
DX: T84.54XD Infection and inflammatory reaction due to internal left knee prosthesis, subsequent encounter (principal)
CPT/HCPCS: 36415; 85025; 85652; 86140

== ENCOUNTER 2019-12-05 09:58 | Inpatient (IN) | payer MEDICARE, OTHER, SELFPAY ==
[2019-09-12 10:28] VITALS: BMI 35.7
--- NOTE | 2019-11-12 22:42 | HP.PCM_ITS ---
History and Physical History and Physical [facility] Patient Name: Clement Reina : 1950 From: RAMIREZ LORENZO PA-C DATE OF SURGERY: 12/05/2019 SCHEDULED PROCEDURE: left knee removal antibiotic spacer with placement of left revision total knee arthroplasty HISTORY OF PRESENT ILLNESS: Preoperative history and physical exam was performed on November 12, 2019. This is a 68-year-old male who is had an initial left total knee arthroplasty by Dr. Deshawn Caceres on December 13, 2016. Patient developed an infection and had an antibiotic spacer placed on September 12, [address] Juwan Darling. Patient has finished his IV antibiotics. Patient has seen trending down of his inflammatory lab work. Patient's pain has been controlled. He has been using a walker. Patient has a medical history pertinent for sleep apnea, ulcers, hypertension. After discussion with Dr. Juwan Darling, the patient would like to proceed with a removal antibiotic spacer and placement of left revision total knee arthroplasty. Patient currently denies any chest pain, shortness of breath, fevers chills. REVIEW OF SYSTEMS: ROS: Const: Denies change in appetite, fever,or weight change. CV: Denies chest pain, heart murmur and irregular heartbeat. Resp: Denies cough, pneumonia, SOB, tuberculosis and wheezing. GI: Reports heartburn, but denies constipation, diarrhea, difficulty swallowing, nausea, bloody stools and vomiting. : Urinary: denies incontinence. Musculo: Reports leg swelling, limp, trouble walking and weakness. Skin: Denies Raynaud's, history of shingles and tattoo. Neuro: Denies ambulatory dysfunction, dizziness, numbness/tingling and tremor. Psych: Denies anxiety, insomnia and stress. Ismael/Lymph: Denies anemia, bleeding/bruising tendency and past transfusion. Reviewed, no changes. PAST MEDICAL HISTORY: Advance Care Plan: No Advance Directives Effective Date: 09/22/2016 PMH: Medical Problems: Arthritis, Sleep Apnea, Ulcers, High Blood Pressure Accidents: None Surgical Hx: Tonsillectomy Shoulder Arthroscopy Lt - (2003) Knee Arthroscopy LT - (1999) Appendectomy, Nose LT TKR - (12/13/2016) [facility] @ [facility] Back Surgery - (12/08/2017) MOE @ [facility] Antibiotic Spacer - Knee - (09/12/2019) SAW @ [facility] Anesthesia Complications: None Assistive Devices: Glasses, Cpap Reviewed, no changes. SOCIAL HISTORY: SH: Marital: .Occupation: Retired.Work Status: Retired.Hand Dominance: Right- handed. Personal Habits: Smoking: Patient is a former smoker.Cigarette Use: Former.Alcohol: Has consumed alcohol in the past.Drug Use: Denies Use.Enjoy Exercising: Exercises 1-3 X/Week. Reviewed, no changes. VITALS: Ht: 67 Wt: 231lb Wt k.782 BMI: 36.2 BP: 149/73 Pulse: 65 Resp: 18 T: 97.6 T: 36.4C ALLERGIES: No Known Drug Allergy MEDICATIONS: Tylenol Arthritis Pain 650 mg prn, Osteo Bi-Flex Advanced Double Strength With Joint Shield qd, Megared Superior Alpine-3 Krill Oil Extra Strength 500 mg qd, Centrum Silver 50+Men 50+Men qd, Alpine 3 1po qday, Terbinafine HCL 250 mg take 1 tablet by mouth once daily, Lisinopril 20 mg take 1 tablet by mouth once daily, Aspir-81 81 mg 1po bid, Meloxicam 7.5 mg take 1 tablet by mouth twice a day PRE-OP EXAM: General appearance:NORMAL Other: Eyes: Conjunctivae and lids: NORMAL Pupils: ERR Ears, Nose, Mouth, and Throat: NORMAL Other: Inspection of lips, teeth and gums: NORMAL Other: Neck: Examination of neck: no masses noted. Respiratory: Assessment of respiratory effort: NORMAL Other: Auscultation of lungs: clear to auscultation no wheezes, rhonchi or rales. Cardiovascular: Auscultation of heart: regular rate and rhythm, no murmurs, gallops or rubs. Exam of carotid arteries: NORMAL Other: Gastrointestinal: Exam of abdomen: soft, nontender, nondistended bowel sounds present. PHYSICAL EXAMINATION: Patient does have large left knee effusion. Previous incision is well-healed without any erythema or signs of infection. Range of motion: 15 to 95. Patient currently walking with walker IMPRESSION: 1. Left knee antibiotic spacer 2. Hypertension 3. History of ulcers 4. Sleep apnea PLAN: Dr. Juwan Darling did discuss and review with the patient all treatment options including surgical versus nonsurgical options. Patient does wish to proceed with the above-stated procedure. Potential risks, benefits, and complications of the procedure were discussed in detail including but not limited to , infection, nerve and blood vessel damage, persistent pain, numbness, tingling, paresthesias, blood clot, pulmonary embolism, and requirement for possible further surgery. The patient expressed full understanding and has no further questions for the doctor. Patient does agree to proceed with the above-stated procedure and has signed the surgery consent form. We discussed the current risks associated with COVID 19. This does include the risk of exposure while in the hospital. Patient was reassured local hospitals have low infection rates and are taking all necessary precautions to avoid exposure to patients. In addition, we discussed strategies that can be used to help limit exposure including those that limit the patient's time in the hospital. Also using strategies to limit the patient's need for continued inpatient services after being discharged from the hospital. Patient was notified that we will need to comply with any screening or testing the hospital wishes to perform or that surgery may be delayed for any positive results. This dictation was created using voice recognition software. Phonetic and/or gr ammatical errors may exist. ___ I have re-examined the patient. There are no clinical changes since date of exam. ___ See progress notes for changes. ___ Dictated on admission Date: Time: Signature:
[2019-11-28 09:23] LABS: Magnesium 2.3 mg/dL (1.6-2.6)
[2019-12-05] VITALS (10 sets, daily range): BP systolic 120–168; BP diastolic 48–80; PULSE 62–87; RESP 16–18; TEMP 36–36.7; O2SAT 94–100; BMI 37.4
[2019-12-05] MEDS: Acetaminophen 500 MG Tablet 1000 MG PO ×2 (11:21→21:06)
[2019-12-05] MEDS: Scopolamine 1mg/72hr Patch 1 PATCH TD (11:22)
[2019-12-05] MEDS: Celecoxib 200 MG Capsule 400 MG PO (11:22)
[2019-12-05] MEDS: Gabapentin 600 MG Tablet PO (11:22)
[2019-12-05 11:46] LABS: Bedside Glucose 82 mg/dL (70-110)
[2019-12-05] MEDS: dexAMETHasone 10 MG/ML Vial IV (13:50)
[2019-12-05] MEDS: Cefazolin 2 GM in 0.9% Normal Saline 100 ML IV (13:50)
--- NOTE | 2019-12-05 16:41 | OP.PCM_ITS ---
Report of Operation Date of Procedure: 12/05/19 Pre-Operative Diagnosis: Left knee periprosthetic joint infection status post debridement with antibiotic spacer. Post-Operative Diagnosis: Left knee periprosthetic joint infection status post debridement with antibiotic spacer. Surgery/Procedure Performed:: Revision left total knee replacement. Removal none biodegradable antibiotic liver system from the left knee Description of Surgical Findings:: Stable knee, good patella tracking residential leasing agent: Munir Izquierdo Type of Anesthesia:: General Anesthesiologist: Be Ornelas Special Medications: 2 g Ancef, 1 g TXA at incision, 1 g TXA closure, 10 mg Decadron, joint cocktail (5 mg Duramorph, 30 mL of 0.5% Ropivicaine, 1000 units of epinephrine, 30 mg of Toradol) Specimen's removed: Bony cuts Estimated Blood Loss (mL): 150 Fluids Replaced: 1300 mL crystalloid Description of Procedure: Implants used: Femur: Zoltan triathlon TS size 5 distal femur with 5 mm distal augment medially, 10 mm distal augment laterally and 10 mm posterior augments medially and laterally. 15 x 100 mm cemented stem. Size 3 4 femoral central cone Tibia: Zoltan triathlon size 6 universal tibial baseplate. Size D tibial cone. 50 x 50 mm tibial stem. Poly: [place] triathlon X3 16mm TS polyethylene Patella: Press-fit 35 mm patella Brief history operative indications: 69-year-old m with total knee replacement in 2019. Patient subsequently had an infection. Antibiotic spacer was placed in an articulating fashion.. Patient demonstrated good response to his IV antibiotics and clearance of the infection.. After ruling out infection we agreed to proceed with revision total knee replacement which had risks which include but not limited to blood loss, DVTs, PEs, nervous damage, infection, the risk of anesthesia. Patient demonstrate understanding was able to sign informed consent. Medical clearance was obtained. Procedure: On the date of procedure patient's L lower extremity was marked in the preoperative area. The patient was then taken back to the operating room where the patient was placed on the table in the supine position. All bony prominences were identified a well-padded. Anesthesia assumed control of the C-spine and airway and remained controlled throughout the remainder of the procedure. A tourniquet was placed on the L upper thigh and the leg was prepped in a sterile fashion. The surgeon then scrubbed at this time. Upon reentering the room L lower extremity was draped in a standard orthopedic fashion. A timeout was then called and everyone agreed upon the side, the site, the procedure to be performed, patient's identity and antibiotics given. An Esmarch bandage was used to exsanguinate the extremity and the tourniquet was placed up to 250 mmHg with the knee in flexion. A midline skin incision was made using the previous incision and extending it proximally and distally to identify normal tissue planes. Medial and lateral flaps were developed appropriate releases. The standard medial parapatellar arthrotomy was made and the patella was subluxed laterally. At this time an aggressive synovectomy was performed re-creating the medial gutter first, then the suprapatellar pouch than the lateral gutter. Once this was completed the knee was flexed up an osteotome was used to remove the tibial polyethylene. The remainder of the synovium was debrided. The standard deep MCL release was done and the patella scar pad was resected and lateral releases were performed. Next our attention was directed to the femur. Where flexible osteotomes and TPS saw were used to break up the implant cement interface. This was done both medially and laterally. After this a bone tamp was used to remove the femur component from the end of the bone. This was done with minimal bone loss. At this time attention was now directed towards the proximal tibia. Possible osteotome and TPS saw were then used to break up the proximal tibia implant interface and stacked osteotomes were used to remove the tibial implant. This was done with minimal bone loss. Antibiotic cement dowel rods were removed from both the femur and tibial canals. Our attention was then turned to the tibia where the intramedullary canal was reamed to 18 and a size D tibial cone was reamed. We then made a cleanup cut on the tibia, A drop josephine was then used to verify the cut. A size 6 tibial base plate was selected. the knee was flexed and the tibial component was pinned into place and the boss reamer was used to ream the proximal medullary canal. The trial implant was impacted in its prepared position. Our attention was then turned back to the femur or the femur intramedullary canal was reamed to 21 mm using the previous implants a size 5 TCG cutting guide with a 21 mm stem was put into place. The medial epicondyle was used to set the joint line. With this TCG cutting guide we used a 19 mm polyethylene trial in order to help balance the gaps. Once the gaps were appropriately balanced the guide was firmly pinned into place. Distal cuts were made with 5 mm augments medially and 10 mm augment laterally. Posterior cuts were made with 10 mm augments medially and 10 mm augment laterally. Using the guide the box cut was made using a reciprocating saw. We then reamed for a size 4 femoral cone The appropriate trials were then placed on the femur and tibia. A trial polyethylene was trialed to ensure proper balancing and stability of the knee. Patella tracking, was then verified and corrected appropriately as needed. Our attention was then directed to the patella. Patella remained intact and appropriate. Based on x-rays it was firmly fixed. Patellar tracking was again checked and deemed appropriate. Final components were verified and opened, 6 liters of normal saline were irrigated throughout the joint under low-pressure lavage. Then the cement was mixed in a vacuum. Box Simplex cement with tobramycin was used. The wound was copiously irrigated with normal saline. When the cement was ready cement plugs were placed in the tibial cone was placed the components were cemented into place starting with the tibia, femur. The trial poly component was placed and the knee was placed in full extension. All excess cement was removed in the process. Once the cement had cured the tracking, alignment and balance were verified and a size 19 mm TS polyethylene component was placed. Once the final components were placed a 3-minute Betadine lavage and 1 minute chlorhexidine lavage was used and the wound was copiously irrigated with normal saline solution and the remainder of the periarticular injection was given. The wound was closed in a layer garcia fashion using #1 vicryl interrupted sutures for the arthrotomy, 2-0 interrupted Vicryl for the subcuticular layer and [place] for final skin closure with some nylons in the most at risk in. A sterile compressive dressing was then placed. The patient was then awakened from anesthesia, transferred to the [facility] and transferred to the PACU for recovery. Post op plan DVT ppx: ASA 81mg BID, thigh high compression stockings. Doxycycline for 1 week as we follow cultures. Follow up: in office in 2 weeks for wound check PT: to start POD #0 at hospital, outpatient PT should be arranged. My physician assistant toddler teacher was a vital part of this case. He was important in appropriate retraction during the case, and protection of soft tissues during bony cuts. His intimate knowledge of the case and my steps aided in safe and expedient completion of the procedure as well as appropriate position of the leg during the case. He was also vital in assisting with closure under my direct supervision. - Complications No intraoperative complications - Admit VTE Documentation VTE Present on Admission: No VTE Mechan Device Prophylaxis: SCD's, Thigh High ZHENG Hose VTE Pharm Prophylaxis ordered?: Yes
--- NOTE | 2019-12-05 17:20 | RAD_ITS ---
STUDY: X-RAY - LEFT KNEE REASON FOR EXAM: Male, 69 years old. Post op, left knee. TECHNIQUE: 2 view(s) of the knee. COMPARISON: Left knee, 09/12/2019. FINDINGS: There is interval revision of a total knee replacement. The new prosthetic components are intact and articulate normally with each other. There is no evidence of loosening from the underlying bone. There is no evidence of osseous fracture or destructive osseous pathology. There is air and swelling in the anterior soft tissues with midline skin clips. A surgical drain is seen in the anterior soft tissues. RAD/Knee 1 or 2 Views IMPRESSION: Revision of a left total knee arthroplasty without acute abnormality. Electronically Signed: Miguel Ángel Jain DO at 17:53 EDT Tel [phone], Service support ,
[2019-12-05] MEDS: Lactated Ringers 1,000 ML 999 ML IV (18:13)
--- NOTE | 2019-12-05 19:51 | PN_ITS ---
Subjective: Patient was seen and examined today, he underwent a revision left total knee replacement today, I was asked to see the patient by orthopedic surgery for medical management. Patient had a left knee replacement in 2019 which subsequently became infected, he had the prosthesis removed and an antibiotic spacer had been placed until the infection cleared. Patient's medical problems include obstructive sleep apnea and essential hypertension. Patient has his own BiPAP machine here. At the time of my examination, patient has no complaints of any shortness of breath, chest discomfort, fever, or chills. - Physical Exam Vitals/I&O's: Vital Signs Temp Pulse Resp BP Pulse Ox 97.5 F L 67 18 155/74 H 100 12/05/19 18:58 12/05/19 18:58 12/05/19 18:58 12/05/19 18:58 12/05/19 18:58 Oxygen Flow Rate (L/min) 6 Oxygen Delivery Method Simple Mask Weight: 111.7 kg Body Mass Index (BMI) 37.4 Intake and Output for Last 24 Hours 12/03/19 12/04/19 12/05/19 23:59 23:59 23:59 Intake Total 2936 / 2936 Output Total 80 / 80 Balance 2856 / 2856 General: Alert, Oriented x3, Cooperative, No apparent distress, Well developed, Well nourished HEENT: Atraumatic, PERRLA, EOMI, Normocephalic Oral: Moist Mucosa Neck: Supple, No JVD, Negative Carotid Bruits, Trachea Midline, Thyroid Normal Size and Texture Lungs: Clear to auscultation, Normal air movement, No rhonchi, No wheeze, No rales Cardiovascular: Regular rate, Regular Rhythm, Normal S1, Normal S2, No murmurs, PMI Normal, No rub noted, No Gallop Abdomen: Bowel Sounds Present, Soft, Non Tender, Non-Distended Extremities: No clubbing, No cyanosis, Capillary Refill Less than 3 Seconds, - - Left knee is wrapped with surgical dressing Skin: No rashes, No breakdown Neurological: Cranial nerves II-XII grossly intact, Neuro grossly intact, Sensory exam intact to light touch and pain, Coordination normal Psych/Mental Status: Normal Affect, Appropriate, Alert and oriented to time, place, person, mood and affect Laboratory Results 12/05/19 10:54: POC Glucose 82 Current Medications Acetaminophen (Tylenol) 1,000 mg PO Q8 [facility] Aspirin (Aspirin, Baby) 81 mg PO BIDCM [facility] Doxycycline Monohydrate (Doxycycline) 100 mg PO BID [facility] Enteral Nutritional Formula (Ensure Surgery) 237 ml PO TIDCM [facility] Famotidine (Pepcid) 20 mg PO DAILY [facility] Lactated Ringer's () 1,000 mls @ 125 mls/hr IV .Q8H [facility] Stop: 12/06/19 04:09 Lactated Ringer's () 1,000 mls @ 125 mls/hr IV .Q8H [facility] Last Admin: 12/05/19 18:45 Dose: Not Given Documented by: Cefazolin Sodium () 1 gm in 50 mls @ 150 mls/hr IV Q8H [facility] Stop: 12/06/19 06:19 Sodium Chloride () 250 mls @ 15 mls/hr IV .[id number] PRN PRN Reason: Saline Flush Sodium Chloride () 250 mls @ 15 mls/hr IV .[id number] PRN PRN Reason: Additional IVPB Infusion Insulin Human Lispro (Humalog Kwikpen (Bkc)) 1 - 6 unit SC Q4H PRN PRN; Protocol PRN Reason: BG>/= 180, SEE PROTOCOL Ketorolac Tromethamine (Toradol (Bkc)) 15 mg IV Q6H PRN PRN PRN Reason: Pain Score 1-5/10 Stop: 12/07/19 07:04 Lisinopril (Zestril) 20 mg PO DAILY [facility] Meloxicam (Mobic) 7.5 mg PO BID [facility] Morphine Sulfate () 2 - 4 mg IV Q2H PRN PRN PRN Reason: Pain Score 6-10/10 Ondansetron HCl (Zofran) 4 mg IV Q8H PRN PRN PRN Reason: NAUSEA Oxycodone HCl (Oxyir) 5 - 10 mg PO Q4H PRN PRN PRN Reason: Pain Score 4-10/10 Pantoprazole Sodium (Protonix) 20 mg PO DAILY [facility] Promethazine HCl (Phenergan) 12.5 mg IM Q6H PRN PRN; Protocol PRN Reason: NAUSEA/VOMITING Senna/Docusate Sodium (Senokot-S, Priscila-Colace) 2 tablet PO BID [facility] Sodium Chloride () 10 - 40 ml IV UD PRN PRN Reason: SALINE FLUSH Medical Necessity - Tobacco Use Smoking Status: Former smoker Assessment/Plan All Active Problems Infection of prosthetic left knee joint (Acute) #1 essential hypertension-patient will remain on his home medication #2 obstructive sleep apnea-patient has his own BiPAP machine in the room, he will use it when sleeping #3 osteoarthritis #4 status post revision left total knee replacement-postop day 0 Inpatient E&M: 76192 Subs Hosp L2
[2019-12-05] MEDS: Lactated Ringers 1,000 ML 125 ML IV (19:57)
[2019-12-05] MEDS: Doxycycline 100 MG CAPSULE PO (21:05)
[2019-12-05] MEDS: Aspirin 81 MG TAB.CHEW PO (21:05)
[2019-12-05] MEDS: Senna/Docusate Sodium 1 Tablet 2 TABLET PO (21:05)
[2019-12-05] MEDS: Cefazolin 1 GM/50 ML BAG IV (21:06)
[2019-12-05] MEDS: Ensure Surgery 237 ML LIQUID PO (21:07)
[2019-12-06] MEDS: oxyCODONE 5 MG Tablet PO ×2 (00:02→11:36)
[2019-12-06 03:55] VITALS: BP 125/59; PULSE 61; RESP 18; TEMP 36.3; O2SAT 100
[2019-12-06] MEDS: Acetaminophen 500 MG Tablet 1000 MG PO (05:25)
[2019-12-06] MEDS: Cefazolin 1 GM/50 ML BAG IV (05:26)
--- NOTE | 2019-12-06 07:35 | PCM.PN.HOSP ---
Subjective: Patient seen and examined. He was admitted for revision of left total knee replacement on 12/05/2019. Today's postop day 1. Hospital service was consulted for medical comanagement. Patient has no complaints today. He has remained hemodynamically stable. Vitals/I&O's: Vital Signs Temp Pulse Resp BP Pulse Ox 97.4 F L 61 18 125/59 H 100 12/06/19 03:55 12/06/19 03:55 12/06/19 03:55 12/06/19 03:55 12/06/19 03:55 Oxygen Flow Rate (L/min) 2 Oxygen Delivery Method CPAP Weight: 246 lb 4.101 oz Body Mass Index (BMI) 37.4 Intake and Output for Last 24 Hours 12/04/19 12/05/19 12/06/19 23:59 23:59 23:59 Intake Total 3142.25 / 3142.25 1950 / 1950 Output Total 80 / 80 225 / 225 Balance 3062.25 / 3062.25 1725 / 1725 General: Alert, Oriented x3, Cooperative HEENT: Atraumatic, PERRLA, EOMI, Normocephalic Oral: Dry Mucosa Neck: Supple, No JVD, Negative Carotid Bruits Lungs: Clear to auscultation, Normal air movement, No rhonchi, No wheeze Cardiovascular: Regular rate, Regular Rhythm, Normal S1, Normal S2, No murmurs Abdomen: Bowel Sounds Present, Soft, Non Tender, Non-Distended, No Hepato-splenomegaly Extremities: No edema, Capillary Refill Less than 3 Seconds Skin: No rashes, No breakdown Musculoskeletal: - - left knee wrapped in surgical dressing Lymphatic: No Cervical, Supraclavicular, or Inguinal Adenopathy Neurological: Cranial nerves II-XII grossly intact, Neuro grossly intact, Motor Exam 5/5 strength throughout Psych/Mental Status: Normal Affect, Appropriate, Alert and oriented to time, place, person, mood and affect Laboratory Results 12/05/19 10:54: POC Glucose 82 Current Medications Acetaminophen (Tylenol) 1,000 mg PO Q8 [facility] Last Admin: 12/06/19 05:25 Dose: 1,000 mg Documented by: Aspirin (Aspirin, Baby) 81 mg PO BIDCM [facility] Last Admin: 12/05/19 21:05 Dose: 81 mg Documented by: Doxycycline Monohydrate (Doxycycline) 100 mg PO BID [facility] Last Admin: 12/05/19 21:05 Dose: 100 mg Documented by: Enteral Nutritional Formula (Ensure Surgery) 237 ml PO TIDCM [facility] Last Admin: 12/05/19 21:07 Dose: 237 ml Documented by: Famotidine (Pepcid) 20 mg PO DAILY [facility] Sodium Chloride () 250 mls @ 15 mls/hr IV .[id number] PRN PRN Reason: Saline Flush Sodium Chloride () 250 mls @ 15 mls/hr IV .[id number] PRN PRN Reason: Additional IVPB Infusion Insulin Human Lispro (Humalog Kwikpen ([facility])) 1 - 6 unit SC Q4H PRN PRN; Protocol PRN Reason: BG>/= 180, SEE PROTOCOL Ketorolac Tromethamine (Toradol ([facility])) 15 mg IV Q6H PRN PRN PRN Reason: Pain Score 1-5/10 Stop: 12/07/19 07:04 Lisinopril (Zestril) 20 mg PO DAILY [facility] Meloxicam (Mobic) 7.5 mg PO BID [facility] Morphine Sulfate () 2 - 4 mg IV Q2H PRN PRN PRN Reason: Pain Score 6-10/10 Ondansetron HCl (Zofran) 4 mg IV Q8H PRN PRN PRN Reason: NAUSEA Oxycodone HCl (Oxyir) 5 - 10 mg PO Q4H PRN PRN PRN Reason: Pain Score 4-10/10 Last Admin: 12/06/19 00:02 Dose: 10 mg Documented by: Pantoprazole Sodium (Protonix) 20 mg PO DAILY [facility] Promethazine HCl (Phenergan) 12.5 mg IM Q6H PRN PRN; Protocol PRN Reason: NAUSEA/VOMITING Senna/Docusate Sodium (Senokot-S, Priscila-Colace) 2 tablet PO BID [facility] Last Admin: 12/05/19 21:05 Dose: 2 tablet Documented by: Sodium Chloride () 10 - 40 ml IV UD PRN PRN Reason: SALINE FLUSH STROKE Vital Signs/Narrative: Vital Signs Temp Pulse Resp BP Pulse Ox 12/06/19 03:55 97.4 F L 61 18 125/59 H 100 Medical Necessity - Tobacco Use Smoking Status: Former smoker Assessment/Plan All Active Problems Infection of prosthetic left knee joint (Acute) # Revision of left total knee replacement today is POD 1 management as per orthopedics pain management as per orthopedics- on morphine, oxycodone and tylenol # Hypertension: on lisinopril and # JORJE:on CPAP machine DVT prophylaxis: as per orthopedics. on aspirin 81mg bid. Inpatient E&M: 84183 Subs Hosp L2
[2019-12-06 08:30] VITALS: BP 133/52; PULSE 66; RESP 14; TEMP 37.2; O2SAT 95
--- NOTE | 2019-12-06 08:52 | PCM.PN.ORT ---
Subjective: The patient was sitting in bedside chair upon examination. Patient denies any chest pain, shortness of breath, dizziness, lightheadedness, nausea or vomiting, or calf pain. Pain is controlled on medications. No adverse overnight events. Overall patient is doing very well today. His pain is controlled. Patient is adamant that he tries to go home today. Patient does have a drain postoperatively for his left knee. Objective: Vital signs stable and afebrile. Patient is able to plantarflex and dorsiflex actively. Sensation is intact to light touch to saphenous, sural, superficial and deep peroneal, and tibial distribution. Dressing is clean dry and intact. Hemovac drain in place: There has been 225 cc drainage overnight. Case was discussed with Dr. Pola Darling. Drain was removed and Steri-Strips were placed over incision. Compressive dressing was then placed over the left knee. Patient tolerated the procedure very well. Negative Homans bilaterally, negative signs and symptoms of DVT. - Physical Exam Vitals/I&O's: Vital Signs Temp Pulse Resp BP Pulse Ox 97.4 F L 61 18 125/59 H 100 12/06/19 03:55 12/06/19 03:55 12/06/19 03:55 12/06/19 03:55 12/06/19 03:55 Oxygen Flow Rate (L/min) 2 Oxygen Delivery Method CPAP Weight: 111.7 kg Body Mass Index (BMI) 37.4 Intake and Output for Last 24 Hours 12/04/19 12/05/19 12/06/19 23:59 23:59 23:59 Intake Total 3142.25 / 3142.25 1950 / 1950 Output Total 80 / 80 225 / 225 Balance 3062.25 / 3062.25 1725 / 1725 General: Alert, Oriented x3, Cooperative, No apparent distress Laboratory Results 12/05/19 10:54: POC Glucose 82 12/06/19 08:30: WBC Pending, RBC Pending, Hgb Pending, Hct Pending, MCV Pending, MCH Pending, MCHC Pending, RDW Std Deviation Pending, RDW Coeff of Claudia Pending, Plt Count Pending 12/06/19 08:30: Sodium Pending, Potassium Pending, Chloride Pending, Carbon Dioxide Pending, Anion Gap Pending, BUN Pending, Creatinine Pending, Est GFR (MDRD) Af Amer Pending, Est GFR (MDRD) Non-Af Pending, BUN/Creatinine Ratio Pending, Glucose Pending, Calcium Pending Current Medications Acetaminophen (Tylenol) 1,000 mg PO Q8 [facility] Last Admin: 12/06/19 05:25 Dose: 1,000 mg Documented by: [facility], [facility]) [facility] Admin: 12/05/19 21:05 Dose: 81 mg Documented by: Doxycycline Monohydrate (Doxycycline) 100 mg PO BID [facility] Last Admin: 12/05/19 21:05 Dose: 100 mg Documented by: Enteral Nutritional Formula (Ensure Surgery) 237 ml PO TIDCM [facility] Last Admin: 12/05/19 21:07 Dose: 237 ml Documented by: Famotidine (Pepcid) 20 mg PO DAILY [facility] Sodium Chloride () 250 mls @ 15 mls/hr IV .[id number] PRN PRN Reason: Saline Flush Sodium Chloride () 250 mls @ 15 mls/hr IV .[id number] PRN PRN Reason: Additional IVPB Infusion Insulin Human Lispro (Humalog Kwikpen ([facility])) 1 - 6 unit SC Q4H PRN PRN; Protocol PRN Reason: BG>/= 180, SEE PROTOCOL Ketorolac Tromethamine (Toradol ([facility])) 15 mg IV Q6H PRN PRN PRN Reason: Pain Score 1-5/10 Stop: 12/07/19 07:04 Lisinopril (Zestril) 20 mg PO DAILY [facility] Meloxicam (Mobic) 7.5 mg PO BID [facility] Morphine Sulfate () 2 - 4 mg IV Q2H PRN PRN PRN Reason: Pain Score 6-10/10 Ondansetron HCl (Zofran) 4 mg IV Q8H PRN PRN PRN Reason: NAUSEA Oxycodone HCl (Oxyir) 5 - 10 mg PO Q4H PRN PRN PRN Reason: Pain Score 4-10/10 Last Admin: 12/06/19 00:02 Dose: 10 mg Documented by: Pantoprazole Sodium (Protonix) 20 mg PO DAILY [facility] Promethazine HCl (Phenergan) 12.5 mg IM Q6H PRN PRN; Protocol PRN Reason: NAUSEA/VOMITING Senna/Docusate Sodium (Senokot-S, Priscila-Colace) 2 tablet PO BID [facility] Last Admin: 12/05/19 21:05 Dose: 2 tablet Documented by: Sodium Chloride () 10 - 40 ml IV UD PRN PRN Reason: SALINE FLUSH Medical Necessity - Tobacco Use Smoking Status: Former smoker Assessment/Plan All Active Problems Infection of prosthetic left knee joint (Acute) 1. S/P left knee removal antibiotic spacer with revision left total knee arthroplasty POD #1 2. Continue Pain Medications: Tylenol, meloxicam, oxycodone 3. DVT Prophylaxis: Take 81 mg aspirin twice daily for 4 weeks postoperatively for DVT prophylaxis 4. PT/OT: Weightbearing as tolerated 5. H & H: Currently pending. They had a difficult time drawing patient's blood, however patient is clinically asymptomatic. We will continue to follow his lab work as this will determine his discharge today 6. Encouraged Incentive Spirometry 7. Continue postoperative medical management per medicine: Discussed case with hospitalist 8. Continue antibiotic while following cultures: Currently pending. Currently using doxycycline 1 week postoperatively 9. Hemovac drain was pulled today. Patient tolerated procedure well. Steri-Strips were placed as well as a compressive dressing on the left knee 10. Disposition: Plan will be for possible discharge home today as long as patient's lab work is within normal limits/stable and patient tolerates physical therapy and pain is well controlled. Patient will follow-up per postop instructions. We will have case management assist and scheduling patient for outpatient physical therapy. I have reviewed the [place] Automated Rx Reporting System (OARRS) report for this patient for refill pattern and other prescriber involvement as part of the appropriate surveillance for the provision of acute and chronic controlled medications. The report was requested and reviewed on the date of this entry and was considered in the prescribing process.
--- NOTE | 2019-12-06 09:07 | PCM.DC.TKR ---
Discharge Diet: No Restrictions Discharge Activity: May Not Drive May shower in (days): 1 - Dressing must be intact to skin. Turn dressing away from water Ice area for (Minutes): 20 - Every 1-2 hours while awake Weight Bearing Status: Weight bearing as tolerated Elevate: Operative Extremity Additional Activity Instructions:: Wear elastic stockings for 2 weeks after your surgery. Call your doctor if your incision/area has: Continuous Slow Oozing, Sudden Increased Bleeding, Increased Pain/ Swelling, Increased Redness, Foul Smelling Discharge Call your doctor if you observe: Fever of 101 or Higher, Coldness, Increased Pain, Numbness or Tingling, Change in Color, Calf discomfort, Uncontrolled pain Remove Dressing in (days):: 4 - Okay to remove dressing on December 10, 2019 Additional Instructions: Follow orthopedic postop instructions Allergies/Adverse Reactions: Allergies No Known Allergies Allergy (Verified 12/05/19 10:48) Medications to take at Discharge RX: Lisinopril 20 mg PO DAILY 08/29/19 RX: Omeprazole [Prilosec] 20 mg PO DAILY 08/29/19 RX: Terbinafine HCl 250 mg PO DAILY 08/29/19 RX: Acetaminophen [Tylenol] 1,000 mg PO Q8 #100 tab 12/06/19 RX: Aspirin [Aspirin, Baby] 81 mg PO BIDCM #60 tab 12/06/19 RX: Doxycycline 100 mg PO BID #14 cap 12/06/19 RX: Oxycodone [Oxyir] 5 - 10 mg PO Q4H PRN PRN 5 Days #60 tab 12/06/19 RX: Senna/Docusate Sodium [Senokot-S] 2 tab PO BID #20 tab 12/06/19 The following prescriptions were given: RX: Aspirin [Aspirin, Baby] 81 mg PO BIDCM #60 tab Transmission Status: Received by [facility] RX: Doxycycline 100 mg PO BID #14 cap Transmission Status: Received by [facility] RX: Oxycodone [Oxyir] 5 - 10 mg PO Q4H PRN PRN 5 Days #60 tab PRN Reason: Pain Score 4-10/10 Transmission Status: Received by [facility] RX: Senna/Docusate Sodium [Senokot-S] 2 tab PO BID #20 tab Transmission Status: Received by [facility] RX: Acetaminophen [Tylenol] 1,000 mg PO Q8 #100 tab Transmission Status: Received by [facility] Primary Care Physician: Rhoda Caceres MD [Primary Care Provider] - Please follow up with your Primary Care Physician in: recommend follow up with PCP for elevated Creatinine and follow up labwork Test Results: Test results from this visit will be discussed in further detail at your follow-up appointment, if applicable. Please Follow Up With: physical therapy When: to begin 12/10/19, will be scheduled by Case management Please Follow Up With: Munir Izquierdo PA-C When: 12/19/19 @ 10:00 am
[2019-12-06 09:08] LABS: Anion Gap 8 (5-15); BUN 35 mg/dL (7-18); BUN/Creat Ratio 18.9 RATIO (10-20); Chloride 112 mmol/L (98-107); Creatinine, Serum 1.85 mg/dL (0.70-1.30); EST Glomerular Filtration Rate 39 mL/min (>60); Est Glom Filt Rate - Afr Amer 47 mL/min (>60); Estimated Creatinine Clearance 35.43 ml/min; Glucose 190 mg/dL (74-106); Sodium Level 143 mmol/L (136-145)
[2019-12-06] MEDS: Lisinopril 20 MG Tablet PO (09:27)
[2019-12-06] MEDS: Pantoprazole Sodium 20 MG Tablet PO (09:27)
[2019-12-06] MEDS: Ensure Surgery 237 ML LIQUID PO ×2 (09:27→11:36)
[2019-12-06] MEDS: Doxycycline 100 MG CAPSULE PO (09:28)
[2019-12-06] MEDS: Famotidine 20 MG Tablet PO (09:28)
[2019-12-06] MEDS: Aspirin 81 MG TAB.CHEW PO (09:28)
[2019-12-06] MEDS: Senna/Docusate Sodium 1 Tablet 2 TABLET PO (09:28)
[2019-12-06 10:14] LABS: Hematocrit 35.5 % (40-54); Hemoglobin 11.5 g/dL (13.0-16.5); Mean Corp Hgb Conc 32.4 g/dL (32-36); Mean Corpuscular Hgb 29.1 pg (27.0-32.0); Mean Corpuscular Volume 89.9 fL (80-94); Mean Platelet Vol. 8.4 fl (6.2-12.0); Platelet Count 204 K/mm3 (150-450); RBC Distribution Width CV 13.9 % (11.6-14.6); RBC Distribution Width SD 45.7 fl (35.1-43.9); Red Blood Count 3.95 M/mm3 (4.6-6.2); White Blood Count 13.2 K/mm3 (4.4-11.0)
--- NOTE | 2019-12-06 10:34 | CASEMGMT ---
Addendum entered by Juan José Pham 12/06/19 11:46: PCP: Dr. Alejandro Caceres Pharmacy: [facility] Pharmacy benefit: yes Living arrangements: Lives in one story home with ramp to entry. Patient is moderately independent, has who can assist. DME: ww, rollator, cane, RTS, shower chair, tube bench DC Plan: home with outpatient therapy- see below Original Note: RN CM Assessment. Referral received by ISABELLA Ledezma for ortho. Patient lives in [place] and does not have outpt therapy set up. Would like to go closer to home. Intro role of CM to patient. Reviewed list of choices for out pt PT/OT and [facility] was closest (20 minutes). Patient states he plans to drive himself. RN FORD did let him know he may have driving restrictions on dc and should find alternative transportation. He said I don't plan to use the narcotics when I drive. Map, phone numbers and script given to patient and also let pt know that script would be faxed to the facility for him. Name/address/number placed in dc appointments. Call to [facility]-they will contact patient for set up. [facility] [place], [place]
[2019-12-06 12:00] VITALS: BP 147/52; PULSE 74; RESP 14; TEMP 36.6; O2SAT 92
--- NOTE | 2019-12-06 14:02 | PHA.DC.MC ---
Pharmacy Service has performed discharge medication reconciliation and counseling for this patient. 1. ACETAMINOPHEN 1000MG PO Q8H 2. ASPIRIN 81MG PO BIDCM 3. DOXYCYCLINE 100MG PO BID X 7 DAYS 4. OXYCODONE 5-10MG PO Q4H PRN PAIN 4-12/07 5. SENNA/DOCUSATE 2T PO BID UNTIL FIRST BM, THEN BID PRN CONSTIPATION The patient's discharge medication list was reviewed for discrepancies and discrepancies were resolved. Home Medications Lisinopril 20 mg PO DAILY 08/29/19 Omeprazole [Prilosec] 20 mg PO DAILY 08/29/19 Terbinafine HCl 250 mg PO DAILY 08/29/19 Acetaminophen [Tylenol] 1,000 mg PO Q8 #100 tab 12/06/19 Aspirin [Aspirin, Baby] 81 mg PO BIDCM #60 tab 12/06/19 Doxycycline 100 mg PO BID #14 cap 12/06/19 Oxycodone [Oxyir] 5 - 10 mg PO Q4H PRN PRN 5 Days #60 tab 12/06/19 Senna/Docusate Sodium [Senokot-S] 2 tab PO BID #20 tab 12/06/19 The patient was counseled on the following discharge medications and changes in medications for homegoing were reviewed. The Reason for Use, instructions for use, and potential side effects were reviewed for all new medications. The patient's questions regarding all of their medications were answered. The patient was able to verbally demonstrate an understanding of their discharge medications.
== END 2019-12-06 12:41 | disposition home or self-care (01) | DRG 468 ==
LOC: ACINP 10:04 → MS3 10:57
PROVIDERS: Anesthesiology; Admitting Provider Specialist; PCP Family Medicine; Referring Provider Specialist; Visit Provider Student in an Organized Health Care Education/Training Program
PROC: 0SPD0JZ Removal of Synthetic Substitute from Left Knee Joint, Open Approach (ICD-10-PCS; principal; 2019-12-05 11:35)
DX: Z47.33 Aftercare following explantation of knee joint prosthesis (principal); I10 Essential (primary) hypertension; G47.33 Obstructive sleep apnea (adult) (pediatric); M19.90 Unspecified osteoarthritis, unspecified site
CPT/HCPCS: 36415; 73560; 80048; 82962; 83735; 85027; 87015; 87070; 87075; 87081; 87102; 87116; 87176; 87205; 87206; 87635; 97162; 97166; 97802; 99251; C1776; C9803; J7120; G0463; J2405; U0003

== ENCOUNTER → 2021-01-12 06:50 | Outpatient (CLI) | payer MEDICARE, OTHER, SELFPAY ==
--- NOTE | 2021-01-12 06:59 | CT_ITS ---
STUDY: CT RIGHT LOWER EXTREMITY WITHOUT CONTRAST REASON FOR EXAM: Right knee osteoarthritis with varus deformity. Surgical planning . TECHNIQUE: Transaxial CT imaging of the lower extremity was performed. Coronal and sagittal images were reformatted. Individualized dose optimization techniques were used for this CT. COMPARISON: None. FINDINGS: Knee: There are marginal osteophytes and moderate joint space narrowing of the medial femorotibial compartment (coronal reconstruction 28). There is a bone infarct in the distal femoral diaphysis (coronal reconstructions 27-29). There is preservation of joint space of the lateral femorotibial compartment. There are small marginal osteophytes and mild joint space narrowing of the patellofemoral compartment (axial image 358). There is mild subchondral cystic change of the tibia adjacent to the proximal tibiofibular articulation. There is a small joint effusion. There is a popliteal cyst (axial image 374). The quadriceps tendon is grossly normal. The patellar tendon is grossly normal. Normal Hoffa''s fat pad. There is an intra-articular body anterior to the lateral tibial plateau (sagittal reconstructions 24-26). There are small posterior intra-articular bodies (sagittal reconstruction 41). There is vascular calcification. Hip: There are small marginal osteophytes of the femoral head and joint space narrowing of the superior medial right hip joint (coronal reconstruction 65). Ankle: There is a subchondral cyst in the posterior aspect of the tibial plafond (sagittal reconstruction 30). Normal posterior subtalar and talonavicular articulations. There are ossicles adjacent to the medial malleolus (coronal reconstruction 22). CT/Extremity Lower without Contra IMPRESSION: Right knee osteoarthritis. 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 Electronically Signed: John Morrison MD at 14:47 EST Tel , Service support ,
== END ==
PROVIDERS: PCP Family Medicine; Referring Provider Specialist; Visit Provider Specialist
DX: M21.161 Varus deformity, not elsewhere classified, right knee (principal); M17.11 Unilateral primary osteoarthritis, right knee
CPT/HCPCS: 73700

== ENCOUNTER → 2021-01-13 09:15 | Outpatient (CLI) | payer MEDICARE, OTHER, SELFPAY ==
--- NOTE | 2021-01-13 09:20 | EKG12_ITS ---
Test Reason : PRE OP Blood Pressure : / mmHG Vent. Rate : 058 BPM Atrial Rate : 058 BPM P-R Int : 144 ms QRS Dur : 078 ms QT Int : 408 ms P-R-T Axes : 044 006 051 degrees QTc Int : 400 ms Sinus bradycardia Otherwise normal ECG Confirmed by ANANTH JARVIS, EDUARDO ([id number]), commercial production editor WOLF CHRISTIANSON ([id number]) on 01/14/2021 9:36:19 AM Referred By: Munir Izquierdo Confirmed By:EDUARDO WADSWORTH MD
[2021-01-13 11:14] LABS: Absolute Lymphocyte Count 1.96 X10^3/uL (0.83-4.51); Basophil# 0.07 X10^3/uL; Eosinophil# 0.25 X10^3/uL; Eosinophils% 3.6 % (0-5); Hematocrit 39.4 % (40-54); Lymphocyte # 1.96 X10^3/ul (0.83-4.51); Lymphocyte % 28.6 % (19-41); Mean Corpuscular Hgb 30.5 pg (27.0-32.0); Mean Corpuscular Volume 92.5 fL (80-94); Mean Platelet Vol. 8.5 fl (6.2-12.0); Monocyte% 7.3 % (0-10); NRBC Flagged by Analyzer 0 % (0-5); Neutrophil # 4.02 X10^3/uL (2.7-7.7); Neutrophil % 58.8 % (47-70); Platelet Count 214 K/mm3 (150-450); RBC Distribution Width CV 12.8 % (11.6-14.6); RBC Distribution Width SD 43.8 fl (35.1-43.9); Red Blood Count 4.26 M/mm3 (4.6-6.2); White Blood Count 6.9 K/mm3 (4.4-11.0)
[2021-01-13 11:39] LABS: Anion Gap 6 (5-15); BUN 19 mg/dL (7-18); BUN/Creat Ratio 23.1 RATIO (10-20); Calcium,Total 8.8 mg/dL (8.5-10.1); Chloride 110 mmol/L (98-107); Creatinine, Serum 0.82 mg/dL (0.70-1.30); EST Glomerular Filtration Rate 98 mL/min (>60); Est Glom Filt Rate - Afr Amer 118 mL/min (>60); Glucose 77 mg/dL (74-106); Potassium 4.5 mmol/L (3.5-5.1); Sodium Level 143 mmol/L (136-145)
== END ==
PROVIDERS: PCP Family Medicine; Referring Provider Physician Assistant Surgical; Visit Provider Physician Assistant Surgical
DX: Z01.812 Encounter for preprocedural laboratory examination (principal)
CPT/HCPCS: 36415; 80048; 85025; 93005

== ENCOUNTER 2021-01-22 22:16 | Emergency (ER) | payer MEDICARE, OTHER, SELFPAY ==
[2021-01-22 22:17] VITALS: BP 154/71; PULSE 55; RESP 16; TEMP 36; O2SAT 94; BMI 37.2
--- NOTE | 2021-01-22 22:24 | EKG12_ITS ---
Test Reason : CP Blood Pressure : / mmHG Vent. Rate : 060 BPM Atrial Rate : 060 BPM P-R Int : 156 ms QRS Dur : 084 ms QT Int : 404 ms P-R-T Axes : 049 -05 064 degrees QTc Int : 404 ms Normal sinus rhythm Nonspecific T wave abnormality Abnormal ECG Confirmed by ANANTH JARVIS, EDUARDO ([id number]), editorial specialist WOLF CHRISTIANSON ([id number]) on 01/23/2021 11:49:00 AM Referred By: KAREN Confirmed By:EDUARDO WADSWORTH MD
--- NOTE | 2021-01-22 22:34 | EDS_ITS ---
HPI History of Present Illness Chief Complaint: Chest Pain Onset/Context/Timing Onset: Today and Hours (7) Activity at onset: rest Timing: Continuous Quality: Positive for Burning and Sharp Location: Right Chest and Left Chest Worsened By: Movement of Arm (Crossing his arms in front of him) Relieved By: Nothing Associated Symptoms: Positive for Acid Reflux; Negative for Nausea, Vomiting, Diaphoresis, Dyspnea, Cough, Fever, Lightheadedness and Palpitations Narrative Narrative: Patient presents with chest pain that began approximately 7 hours prior to arrival. Patient states he was sitting and watching TV when the pain began. Patient describes the pain as sharp and burning. Patient states it is over the lower chest bilaterally. Patient feels it is under his ribs and breasts bilaterally. Patient states it was worse whenever he crossed his arms in front of him. Patient states nothing has helped with the pain. Patient admits to some reflux symptoms. Patient denies any nausea or vomiting. Patient denies any diaphoresis. Patient denies any cough, shortness of breath, fevers, or chills. CVD Risk Factors: Positive for Hypertension and Family History 1' </=55; Negative for Diabetes, Hypercholesterolemia and Smoking PE Risk Factors: Negative for Recent Travel/Surgery, Recent Immobilization, Prior DVT or PE, Cancer and OCP + Smoking + >/=35 [facility] Medical History (Updated 01/23/21 @ 01:[address] Alejandro Benoit DO) Hypertension Home Medications lisinopril 20 mg PO DAILY 08/29/19 [History Last Taken 12/05/19] omeprazole 20 mg PO DAILY 08/29/19 [History Last Taken 12/05/19] acetaminophen 1,000 mg PO Q8 #100 tab 12/06/19 [Rx Last Taken Unknown] Allergy/AdvReac Type Severity Reaction Status Date / Time No Known Allergies Allergy Verified 12/05/19 10:48 Surgical History (Updated 01/22/21 @ 22:[address] Alejandro Benoit DO) Hx of appendectomy Hx of arthroscopy of left knee Hx of arthroscopy of shoulder Hx of tonsillectomy Hx of total knee replacement Social History Smoking Status: Former smoker ROS ROS ED Constitutional Constitutional ED: Denies chills or fever(s) Eyes Eyes: Denies blurry vision or change in vision ENT ENT ED: Denies rhinorrhea or sore throat Cardiovascular Cardiovascular: Reports chest pain; Denies palpitations Respiratory/Chest Respiratory/Chest: Denies cough or dyspnea Gastrointestinal Gastrointestinal: Denies abdominal pain, nausea or vomiting Genitourinary Genitourinary ED: Denies dysuria or hematuria Musculoskeletal Musculoskeletal: Denies back pain or neck pain Integumentary Denies abscess or rash Neurologic Neurologic: Denies headache(s) or weakness Allergic/Immunologic Allergic/Immunologic ED: Denies mouth swelling or urticaria EXAM Physical Exam Const Vital Signs: 01/22/21 22:17 01/22/21 22:35 01/22/21 22:44 Temperature 96.8 F L Temperature Source Temporal Pulse Rate 55 L 79 Respiratory Rate 16 Blood Pressure 154/71 H 169/60 H Blood Pressure Mean 98 Pulse Ox 94 96 Oxygen Delivery Method Room Air Room Air 01/22/21 23:06 01/22/21 23:41 01/22/21 23:51 Temperature Temperature Source Pulse Rate 74 82 75 Respiratory Rate 19 H Blood Pressure 143/70 H 144/61 H 136/65 H Blood Pressure Mean 88 Pulse Ox 92 Oxygen Delivery Method Room Air 01/23/21 00:00 01/23/21 01:00 Temperature Temperature Source Pulse Rate 80 72 Respiratory Rate 16 16 Blood Pressure 137/78 H 137/62 H Blood Pressure Mean 97 87 Pulse Ox 95 94 Oxygen Delivery Method Room Air Room Air Positive well nourished, well developed and obese General Appearance ED: well developed Nutritional Appearance: obese HEENT normocephalic and atraumatic Eyes PERRL and EOMs intact bilaterally Neck supple and no JVD Chest Wall palpation of chest normal Resp normal respiratory effort and clear to auscultation bilaterally Effort and Inspection: Negative for respiratory distress Cardio regular rate, regular rhythm and no murmurs GI normal to inspection, nondistended, normoactive bowel sounds, soft to palpation, non-tender and non-distended Extremity normal to inspection General Extremety ED: Negative for edema or tenderness General Extremity: Negative for edema Neuro oriented x3, CN's II-XII intact bilaterally and no sensory deficits noted Sensorium / Orientation: awake and alert Motor Exam: strength 5/5 throughout Psych mental status grossly normal Heart Score History: Slightly/Non-Suspicious ECG: Normal Age: >/= 65 years Risk Factors: 1 or 2 Risk Factors Troponin: </= Normal Limit Score: 3 MDM MDM MDM Narrative Medical decision making narrative: Patient was given aspirin and nitroglycerin here. EKG was obtained. On my interpretation, it showed a normal sinus rhythm with a rate of 60. DE interval, QRS interval, and QTc intervals were all normal. Mission was normal. There there is mild nonspecific T wave flattening and V3 through V6. CBC and basic metabolic profile were obtained and were esse ntially within normal limits. Initial high-sensitivity troponin was normal at 9. 2-hour repeat high-sensitivity troponin was 11. Portable 1 view chest x-ray was obtained. On my interpretation, lung deras show bibasilar atelectasis versus infiltrate. There is normal cardiac silhouette. Bony thorax is normal. There is a mild left pleural effusion. Radiologist also interpreted the x-ray and agrees. Patient was advised of his findings. Patient has a HEART score of 3. Patient was advised that this is low risk for acute cardiac event. Patient was instructed to follow-up with his primary care physician in 5 to 7 days. Patient was instructed return if worse in any way. Patient understood and was agreeable with the plan. All questions were answered. Lab Data Attestation: I reviewed the patient's lab results. Labs: Laboratory Results - last 24 hr 01/22/21 01/22/21 01/23/21 22:40 22:40 00:49 WBC 9.3 RBC 4.49 L Hgb 14.2 Hct 41.3 MCV 92.0 MCH 31.6 MCHC 34.4 RDW Std Deviation 42.5 RDW Coeff of Claudia 12.7 Plt Count 195 MPV 8.4 Immature Gran % (Auto) 0.200 Neut % (Auto) 86.2 H Lymph % (Auto) 10.2 L Price % (Auto) 2.6 Eos % (Auto) 0.3 Baso % (Auto) 0.5 Absolute Neuts (auto) 8.0 H Absolute Lymphs (auto) 0.95 Nucleated RBC % 0 Sodium 140 Potassium 4.2 Chloride 107 Carbon Dioxide 28.0 Anion Gap 5 BUN 19 H Creatinine 0.83 Estim Creat Clear Calc 77.83 Est GFR (MDRD) Af Amer 117 Est GFR (MDRD) Non-Af 97 BUN/Creatinine Ratio 22.9 H Glucose 183 H Calcium 9.2 Troponin I High Sens 9 11 Radiography Chest X-Ray - ED: 1 View, Read by ED Physician, Read by Radiologist and Left Effusion Diagnostic Testing: Clinical Impression(s) from Imaging Studies Chest X-Ray 01/22/21 23:00 IMPRESSION: Bibasilar atelectasis versus infiltrate with left pleural effusion. at 0013 Reported and signed by: Chris Rodney MD Electronically Signed: Chris Rodney MD at 0:12 EST Tel , Service support , EKG Initial EKG: Attestation: I personally reviewed and interpreted this EKG as follows: Interpretation: Sinus Rhythm (60), No Acute Injury Pattern and Non- Specific ST Changes (Mild T wave flattening in lead V3 through V6) Prior EKG tracings: available for review Prior: Unchanged (08/28/2019) Discharge Plan Triage Chief Complaint: Chest Pain ED Provider: Alejandro Benoit Dx/Rx/DC Orders Clinical Impression: Chest pain of uncertain etiology Instructions: ED Chest Pain, Uncertain Cause Prescriptions: No Action lisinopril 20 MG tablet 20 mg PO DAILY RF: 0 omeprazole 20 MG capsule 20 mg PO DAILY RF: 0 acetaminophen 500 MG tablet 1,000 mg PO Q8 Qty: 100 RF: 0 Primary Care Provider: Rhoda Caceres Referrals: Rhoda Caceres MD [Primary Care Provider] - 3-5 Days Disposition Disposition: Home, Self Care
[2021-01-22 22:35] VITALS: O2SAT 96
[2021-01-22] MEDS: Aspirin 81 MG TAB.CHEW 324 MG PO (22:43)
[2021-01-22 22:44] VITALS: BP 169/60; PULSE 79
[2021-01-22] MEDS: Nitroglycerin SL (ED/IMG/CATH) 0.4 MG TABLET SL ×3 (22:44→23:41)
[2021-01-22 22:53] LABS: Absolute Lymphocyte Count 0.95 X10^3/uL (0.83-4.51); Basophil# 0.05 X10^3/uL; Basophil% 0.5 % (0-1); Eosinophil# 0.03 X10^3/uL; Eosinophils% 0.3 % (0-5); Hematocrit 41.3 % (40-54); Hemoglobin 14.2 g/dL (13.0-16.5); Lymphocyte # 0.95 X10^3/ul (0.83-4.51); Lymphocyte % 10.2 % (19-41); Mean Corp Hgb Conc 34.4 g/dL (32-36); Mean Corpuscular Hgb 31.6 pg (27.0-32.0); Mean Platelet Vol. 8.4 fl (6.2-12.0); Monocyte# 0.24 X10^3/uL; Monocyte% 2.6 % (0-10); NRBC Flagged by Analyzer 0 % (0-5); Neutrophil # 8.03 X10^3/uL (2.7-7.7); Neutrophil % 86.2 % (47-70); Platelet Count 195 K/mm3 (150-450); RBC Distribution Width CV 12.7 % (11.6-14.6); RBC Distribution Width SD 42.5 fl (35.1-43.9); Red Blood Count 4.49 M/mm3 (4.6-6.2); White Blood Count 9.3 K/mm3 (4.4-11.0)
--- NOTE | 2021-01-22 23:00 | RAD_ITS ---
HISTORY: chest pain EXAMINATION/TECHNIQUE: XR Chest 1 View AP view COMPARISON: None FINDINGS: LINES/DEVICES: playground monitor leads. LUNGS: No overt pulmonary edema. Crowded bibasilar lung markings. Blunted left costophrenic angle. No pneumothorax detected. MEDIASTINUM AND CARDIOVASCULAR STRUCTURES: Heart size within normal limits for imaging technique. Central airways and mediastinal contour are unremarkable. BONES AND SOFT TISSUES: Degenerative changes along spine. RAD/Chest 1 View (Portable) IMPRESSION: Bibasilar atelectasis versus infiltrate with left pleural effusion. at 0013 Reported and signed by: Chris Rodney MD Electronically Signed: Chris Rodney MD at 0:12 EST Tel , Service support ,
[2021-01-22 23:06] VITALS: BP 143/70; PULSE 74
[2021-01-22 23:24] LABS: Anion Gap 5 (5-15); BUN 19 mg/dL (7-18); BUN/Creat Ratio 22.9 RATIO (10-20); Calcium,Total 9.2 mg/dL (8.5-10.1); Chloride 107 mmol/L (98-107); Creatinine, Serum 0.83 mg/dL (0.70-1.30); EST Glomerular Filtration Rate 97 mL/min (>60); Est Glom Filt Rate - Afr Amer 117 mL/min (>60); Estimated Creatinine Clearance 77.83 ml/min; Glucose 183 mg/dL (74-106); Potassium 4.2 mmol/L (3.5-5.1); Sodium Level 140 mmol/L (136-145); Troponin-I HS 9 pg/mL (3.0-78.0)
[2021-01-22 23:41] VITALS: BP 144/61; PULSE 82
[2021-01-22 23:51] VITALS: BP 136/65; PULSE 75; RESP 19; O2SAT 92
[2021-01-23] VITALS: BP 137/78; PULSE 80; RESP 16; O2SAT 95
[2021-01-23 01:00] VITALS: BP 137/62; PULSE 72; RESP 16; O2SAT 94
[2021-01-23 01:13] LABS: Troponin-I HS 11 pg/mL (3.0-78.0)
[2021-01-23 01:44] VITALS: BP 150/73; PULSE 72; RESP 20; O2SAT 94
== END 2021-01-23 01:45 | disposition home or self-care (01) ==
PROVIDERS: Emergency Provider Emergency Medicine; PCP Family Medicine
DX: R07.9 Chest pain, unspecified (principal); I10 Essential (primary) hypertension; E66.9 Obesity, unspecified; Z79.899 Other long term (current) drug therapy; Z87.891 Personal history of nicotine dependence
CPT/HCPCS: 71045; 80048; 84484; 85025; 93005; 99285; A4216

== ENCOUNTER 2021-05-10 06:36 | Emergency (ER) | payer MEDICARE, OTHER, SELFPAY ==
[2021-05-10 06:37] VITALS: BP 173/86; PULSE 76; RESP 16; TEMP 36.4; O2SAT 95; BMI 39.6
--- NOTE | 2021-05-10 06:52 | CT_ITS ---
STUDY: CT ABDOMEN AND PELVIS WITH CONTRAST REASON FOR EXAM: Male, 70 years old patient with left lower quadrant (LLQ) abdominal pain. RADIATION DOSAGE (If Supplied By Facility): CTDIvol = ( 15.40 ) mGy, DLP = ( 1203.95 ) mGycm TECHNIQUE: Transaxial images were obtained from the dome of the diaphragm to the symphysis pubis without oral contrast. 100 mL of IV Isovue-300 was administered. Sagittal and coronal images were reconstructed. Individualized dose optimization techniques were used for this CT. COMPARISON: Prior comparison studies are not available for review at this time. FINDINGS: There is heterogeneous groundglass attenuation in both lower lobes consistent with multifocal pneumonia. There also appears to be lipomatous thickening of the pleura most obvious on the left than the right. The visualized portions of the heart are within normal limits. Normal liver. Normal gallbladder and extrahepatic biliary system. Normal spleen. Normal pancreas. Normal bilateral adrenal glands. Normal right kidney. There is left-sided perinephric fluid. There is mild left-sided hydronephrosis and hydroureter secondary to a distal ureteral calculus measuring approximately 4.8 x 3.2 mm. Normal visualized stomach. There is no obvious dilated bowel, ascites or pneumoperitoneum. Small bowel has a grossly normal appearance. There is liquid stool in the colon suggesting possible diarrhea. There is multifocal atherosclerotic calcification of the abdominal aorta and iliac arteries, without a demonstrated aneurysm. Normal inferior vena cava. Normal retroperitoneum. Normal urinary bladder. Normal visualized prostate gland. There is a small umbilical hernia containing fat. The patient has had surgical fusion of the L4 and S1 vertebral segments. There is grade 2 spondylolisthesis of L5-S1. There are moderately severe multilevel degenerative changes of the lumbar spine. 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 There are bridging osteophytes anterior and right sacroiliac joints. The patient has had laminectomies at L4. CT/Abdomen/Pelvis W IV Cont ONLY IMPRESSION: 1. Left-sided hydronephrosis and hydroureter secondary to distal ureteral calculus. 2. Bilateral basilar multifocal airspace disease and possible pneumonia. Electronically Signed: Ella Caceres MD at 8:08 EDT ,
--- NOTE | 2021-05-10 06:57 | EDS_ITS ---
HPI History of Present Illness Chief Complaint: Abd Pain Narrative Narrative: Patient is a 70-year-old male who states yesterday around 1 PM he noticed some left-sided abdominal pain. He states there is no injury or excessive activity prior to the pain beginning. He reports that he became nauseous with the pain but had no bouts of vomiting. He also denies any dysuria or hematuria. He states that he did seem to have some mild improvement of the pain around 8 PM last evening and was able to go to bed. He reports however that the pain began to increase throughout the night and even though he had a reported normal bowel movement around 3 AM continue to have persistent symptoms. Secondary to this he presents for evaluation. [facility] Medical History Hypertension Allergy/AdvReac Type Severity Reaction Status Date / Time No Known Allergies Allergy Verified 05/10/21 06:43 Surgical History Hx of appendectomy Hx of arthroscopy of left knee Hx of arthroscopy of shoulder Hx of tonsillectomy Hx of total knee replacement Social History Smoking Status: Former smoker ROS ROS ED Constitutional Constitutional ED: Denies chills or fever(s) ENT ENT ED: Denies sore throat Cardiovascular Cardiovascular: Denies chest pain Respiratory/Chest Respiratory/Chest: Denies cough or dyspnea Gastrointestinal Gastrointestinal: Reports abdominal pain and nausea; Denies constipation, diarrhea or vomiting Genitourinary Genitourinary ED: Denies dysuria or hematuria Musculoskeletal Musculoskeletal: Denies back pain or myalgias Integumentary Denies rash Neurologic Neurologic: Denies headache(s) Hematologic/Lymphatic Hematologic/Lymphatic: Denies easy bleeding or easy bruising EXAM Physical Exam Const Vital Signs: 05/10/21 06:37 Temperature 97.6 F L Temperature Source Oral Pulse Rate 76 Respiratory Rate 16 Blood Pressure 173/86 H Blood Pressure Mean 115 Pulse Ox 95 Oxygen Delivery Method Room Air Positive well nourished, well developed and obese General Appearance ED: well developed Nutritional Appearance: obese HEENT Reports dry mucous membranes Mouth ED: Yes dry mucous membranes Mouth: dry mucous membranes Eyes PERRL and EOMs intact bilaterally General Eye ED: Negative for scleral icterus Neck supple Resp normal respiratory effort and clear to auscultation bilaterally Cardio regular rate and regular rhythm Rate: other Other Details: Radial pulses are plus 2 out of 4 bilaterally are equal and symmetric GI non-distended GI Narrative: Abdomen is obese soft and nondistended with normal active bowel sounds. There is pain with palpation in the left upper mid and lower quadrants without voluntary guarding or rigidity. No pulsatile mass or fluid wave noted. Auscultation: normoactive bowel sounds Palpation: soft Back/Spine no CVA tenderness Extremity Extremity Narrative: Trace pitting edema to bilateral lower extremities that is equal and symmetric Neuro oriented x3 and CN's II-XII intact bilaterally Sensorium / Orientation: alert Motor Exam: strength 5/5 throughout Psych mental status grossly normal Skin no rashes or lesions noted Skin Narrative: No overlying soft tissue changes to suggest trauma or infection General Skin Exam: Negative for jaundice MDM MDM MDM Narrative Medical decision making narrative: Patient's exam and history is most consistent with possible kidney stone but based on his advanced age and prolonged nature of pain did elect to perform a CT scan with IV contrast and basic blood work. Blood work reveals no clinically significant findings but CAT scan does show hydronephrosis secondary to stone. At this time he does not have physical exam/vital sign or laboratory changes to suggest urosepsis and he does not have acute kidney injury. Therefore if pain can be controlled I feel patient can be given medication and discharged home with urology follow-up on an outpatient basis. Lab Data Attestation: I reviewed the patient's lab results. Labs: Laboratory Results - last 24 hr 05/10/21 05/10/21 05/10/21 06:50 06:58 06:58 WBC Cancelled Corrected WBC Cancelled RBC Cancelled Hgb Cancelled Hct Cancelled MCV Cancelled MCH Cancelled MCHC Cancelled RDW Std Deviation Cancelled RDW Coeff of Claudia Cancelled Plt Count Cancelled MPV Cancelled Immature Gran % (Auto) Cancelled Neut % (Auto) Cancelled Lymph % (Auto) Cancelled [facility] % (Auto) Cancelled Eos % (Auto) Cancelled Baso % (Auto) Cancelled Absolute Neuts (auto) Cancelled Absolute Lymphs (auto) Cancelled Total Counted Cancelled Neutrophils % (Manual) Cancelled Band Neutrophils % Cancelled Lymphocytes % (Manual) Cancelled Monocytes % (Manual) Cancelled Eosinophils % (Manual) Cancelled Basophils % (Manual) Cancelled Metamyelocytes % Cancelled Myelocytes % Cancelled Promyelocytes % Cancelled Blast Cells % Cancelled Plasma Cell % (Manual) Cancelled Other Cells % Cancelled Nucleated RBC % Cancelled Nucleated RBCs/100 WBC Cancelled Differential Comment Cancelled Diff Path Review Cancelled Hypersegmented Neuts Cancelled Atypical Lymphocytes Cancelled Reactive Lymphocytes Cancelled Smudge Cells Cancelled Toxic Granulation Cancelled Toxic Vacuolation Cancelled Dohle Bodies Cancelled Veronica Rods Cancelled Platelet Estimate Cancelled Plt Morphology Comment Cancelled RBC Morphology Cancelled Polychromasia Cancelled Hypochromasia Cancelled Poikilocytosis Cancelled Basophilic Stippling Cancelled Anisocytosis Cancelled Microcytosis Cancelled Macrocytosis Cancelled Spherocytes Cancelled Sickle Cells Cancelled Target Cells Cancelled Tear Drop Cells Cancelled Ovalocytes Cancelled Stomatocytes Cancelled [place] Bodies Cancelled Angela Cells Cancelled Bite Cells Cancelled Crenated Cell Cancelled Acanthocytes (Spur) Cancelled Rouleaux Cancelled Schistocytes Cancelled Sodium 142 Potassium 3.9 Chloride 111 H Carbon Dioxide 24.0 Anion Gap 7 BUN 19 H Creatinine 1.03 Estim Creat Clear Calc 62.72 Est GFR (MDRD) Af Amer 91 Est GFR (MDRD) Non-Af 75 BUN/Creatinine Ratio 18.4 Glucose 132 H Lactic Acid 1.4 Calcium 9.2 05/10/21 07:20 WBC 10.6 Corrected WBC RBC 4.48 L Hgb 13.9 Hct 39.5 L MCV 88.2 MCH 31.0 MCHC 35.2 RDW Std Deviation 40.1 RDW Coeff of Claudia 12.5 Plt Count 201 MPV 8.6 Immature Gran % (Auto) 0.400 Neut % (Auto) 84.5 H Lymph % (Auto) 9.[address] % (Auto) 4.6 Eos % (Auto) 0.4 Baso % (Auto) 0.4 Absolute Neuts (auto) 9.0 H Absolute Lymphs (auto) 1.03 Total Counted Neutrophils % (Manual) Band Neutrophils % Lymphocytes % (Manual) Monocytes % (Manual) Eosinophils % (Manual) Basophils % (Manual) Metamyelocytes % Myelocytes % Promyelocytes % Blast Cells % Plasma Cell % (Manual) Other Cells % Nucleated RBC % 0 Nucleated RBCs/100 WBC Differential Comment Diff Path Review Hypersegmented Neuts Atypical Lymphocytes Reactive Lymphocytes Smudge Cells Toxic Granulation Toxic Vacuolation Dohle Bodies Veronica Rods Platelet Estimate Plt Morphology Comment RBC Morphology Polychromasia Hypochromasia Poikilocytosis Basophilic Stippling Anisocytosis Microcytosis Macrocytosis Spherocytes Sickle Cells Target Cells Tear Drop Cells Ovalocytes Stomatocytes [place] Bodies Angela Cells Bite Cells Crenated Cell Acanthocytes (Spur) Rouleaux Schistocytes Sodium Potassium Chloride Carbon Dioxide Anion Gap BUN Creatinine Estim Creat Clear Calc Est GFR (MDRD) Af Amer Est GFR (MDRD) Non-Af BUN/Creatinine Ratio Glucose Lactic Acid Calcium Radiography Diagnostic Testing: Clinical Impression(s) from Imaging Studies Abdomen/Pelvis CT 05/10/21 06:52 IMPRESSION: 1. Left-sided hydronephrosis and hydroureter secondary to distal ureteral calculus. 2. Bilateral basilar multifocal airspace disease and possible pneumonia. Electronically Signed: Ella Caceres MD at 8:08 EDT Reading Location ID and State: [facility] / [place] , Service support , Discharge Plan Triage Chief Complaint: Abd Pain ED Provider: Zen Castano Dx/Rx/DC Orders Clinical Impression: Renal colic, Kidney stone Primary Care Provider: Rhoda Caceres Referrals: Rhoda Caceres MD [Primary Care Provider] -
[2021-05-10] MEDS: Morphine 4 MG/ML Syringe IV (07:11)
[2021-05-10] MEDS: Ondansetron 4 MG/2 ML Vial IV (07:11)
[2021-05-10 07:21] LABS: Anion Gap 7 (5-15); BUN 19 mg/dL (7-18); BUN/Creat Ratio 18.4 RATIO (10-20); Calcium,Total 9.2 mg/dL (8.5-10.1); Chloride 111 mmol/L (98-107); Creatinine, Serum 1.03 mg/dL (0.70-1.30); EST Glomerular Filtration Rate 75 mL/min (>60); Est Glom Filt Rate - Afr Amer 91 mL/min (>60); Estimated Creatinine Clearance 62.72 ml/min; Glucose 132 mg/dL (74-106); Potassium 3.9 mmol/L (3.5-5.1); Sodium Level 142 mmol/L (136-145)
[2021-05-10 07:29] LABS: Absolute Lymphocyte Count 1.03 X10^3/uL (0.83-4.51); Basophil# 0.04 X10^3/uL; Basophil% 0.4 % (0-1); Eosinophil# 0.04 X10^3/uL; Eosinophils% 0.4 % (0-5); Hematocrit 39.5 % (40-54); Hemoglobin 13.9 g/dL (13.0-16.5); Lymphocyte # 1.03 X10^3/ul (0.83-4.51); Lymphocyte % 9.7 % (19-41); Mean Corp Hgb Conc 35.2 g/dL (32-36); Mean Corpuscular Volume 88.2 fL (80-94); Mean Platelet Vol. 8.6 fl (6.2-12.0); Monocyte# 0.49 X10^3/uL; Monocyte% 4.6 % (0-10); NRBC Flagged by Analyzer 0 % (0-5); Neutrophil % 84.5 % (47-70); Platelet Count 201 K/mm3 (150-450); RBC Distribution Width CV 12.5 % (11.6-14.6); RBC Distribution Width SD 40.1 fl (35.1-43.9); Red Blood Count 4.48 M/mm3 (4.6-6.2); White Blood Count 10.6 K/mm3 (4.4-11.0)
[2021-05-10 07:41] LABS: Lactic Acid 1.4 mmol/L (0.4-1.9)
[2021-05-10] MEDS: HYDROmorphone 0.5 MG/0.5 ML SYRINGE IV (07:46)
[2021-05-10] MEDS: Ketorolac 15 MG/ML Vial IV (08:33)
[2021-05-10 09:06] LABS: Bacteria 0 SEEN /hpf (None Seen); Mucous, Urine 0 SEEN /hpf (<or=2+); Red Blood Cells-Urine 0 SEEN /hpf (0-5); Squamous Epithelial Cells - UA 0 SEEN /hpf (0-5); White Blood Cells 0 SEEN /hpf (0-5)
[2021-05-10 09:07] LABS: Color, Urine Yellow (Yellow); Glucose, Dipstick Normal (Normal); Ketone-Dipstick 50 mg/dl (Negative); Leukocyte Esterase-Dipstick Negative /ul (Negative); Nitrite-Dipstick Negative (Negative); Occult Blood-Urine 25 /ul (Negative); Protein-Dipstick 15 mg/dl (Negative); Urine Bilirubin Dipstick Negative (Negative); Urine Clarity Clear (Clear); Urine Urobilinogen Normal (Normal); Urine pH 6.5 (5.0 - 8.0)
== END 2021-05-10 10:19 | disposition home or self-care (01) ==
PROVIDERS: Emergency Provider Emergency Medicine; PCP Family Medicine; Visit Provider Emergency Medicine
DX: N13.2 Hydronephrosis with renal and ureteral calculous obstruction (principal); E66.9 Obesity, unspecified; Z68.39 Body mass index [BMI] 39.0-39.9, adult; Z87.891 Personal history of nicotine dependence
CPT/HCPCS: 74177; 80048; 81001; 83605; 85025; 96361; 96374; 96375; 99283; J7030; Q9967; A4216; J2405

== ENCOUNTER → 2021-07-17 | Outpatient (CLI) | payer MEDICARE, OTHER, SELFPAY ==
[2021-07-17 08:22] LABS: Absolute Lymphocyte Count 1.71 X10^3/uL (0.83-4.51); Absolute Neutrophil Count 3.5 X10^3/uL (2.0-7.7); Basophil# 0.05 X10^3/uL; Basophil% 0.8 % (0-1); Eosinophil# 0.21 X10^3/uL; Eosinophils% 3.5 % (0-5); Hematocrit 39.2 % (40-54); Hemoglobin 13.3 g/dL (13.0-16.5); Lymphocyte # 1.71 X10^3/ul (0.83-4.51); Lymphocyte % 28.6 % (19-41); Mean Corp Hgb Conc 33.9 g/dL (32-36); Mean Corpuscular Hgb 30.8 pg (27.0-32.0); Mean Corpuscular Volume 90.7 fL (80-94); Mean Platelet Vol. 8.1 fl (6.2-12.0); Monocyte# 0.49 X10^3/uL; Monocyte% 8.2 % (0-10); NRBC Flagged by Analyzer 0 % (0-5); Neutrophil # 3.49 X10^3/uL (2.7-7.7); Neutrophil % 58.6 % (47-70); Platelet Count 185 K/mm3 (150-450); RBC Distribution Width CV 13.1 % (11.6-14.6); RBC Distribution Width SD 42.6 fl (35.1-43.9); Red Blood Count 4.32 M/mm3 (4.6-6.2)
--- NOTE | 2021-07-17 08:27 | EKG12_ITS ---
Test Reason : PRE OP Blood Pressure : / mmHG Vent. Rate : 060 BPM Atrial Rate : 060 BPM P-R Int : 150 ms QRS Dur : 080 ms QT Int : 404 ms P-R-T Axes : 044 014 046 degrees QTc Int : 404 ms Normal sinus rhythm Nonspecific ST and T wave abnormality Abnormal ECG Confirmed by ATIF JARVIS, ARNOLD ([id number]), film editor WOLF CHRISTIANSON ([id number]) on 07/20/2021 9:58:29 AM Referred By: Juwan Darling Confirmed By:DELFINA SRIVASTAVA MD
[2021-07-17 08:51] LABS: Anion Gap 7 (5-15); BUN 17 mg/dL (7-18); BUN/Creat Ratio 18.2 RATIO (10-20); Calcium,Total 8.4 mg/dL (8.5-10.1); Chloride 112 mmol/L (98-107); Creatinine, Serum 0.93 mg/dL (0.70-1.30); EST Glomerular Filtration Rate 85 mL/min (>60); Est Glom Filt Rate - Afr Amer 102 mL/min (>60); Glucose 102 mg/dL (74-106); Potassium 3.7 mmol/L (3.5-5.1); Sodium Level 143 mmol/L (136-145)
== END | disposition home or self-care (01) ==
LOC: PSN 08:11
PROVIDERS: PCP Family Medicine; Referring Provider Specialist; Visit Provider Specialist
DX: Z01.812 Encounter for preprocedural laboratory examination (principal); G56.01 Carpal tunnel syndrome, right upper limb
CPT/HCPCS: 36415; 80048; 85025; 93005

== ENCOUNTER 2022-05-10 11:18 | Emergency (ER) | payer MEDICARE, OTHER, SELFPAY ==
[2022-05-10 11:18] VITALS: BP 165/75; PULSE 78; RESP 16; TEMP 36.6; O2SAT 96; BMI 39.3
--- NOTE | 2022-05-10 11:30 | RAD_ITS ---
STUDY: X-RAY - PELVIS AND RIGHT HIP REASON FOR EXAM: Male, 71 years old. Pain, decreased range of motion TECHNIQUE: 3 views of the pelvis and hip. COMPARISON: None. FINDINGS: There is a non-specific bowel gas pattern. Normal visualized soft tissue structures. Surgical hardware in the lower lumbar spine and sacrum free of complication There is narrowing with cortical sclerosis and osteophyte formation of the sacroiliac joint consistent with degenerative osteoarthritic changes. Normal bilateral superior and inferior pubic rami. Normal pubic symphysis. Normal bilateral ischial tuberosities. Normal visualized femoral head. Normal acetabulum. There is moderate articular joint space narrowing of the hip. Mild left hip arthrosis RAD/HIP, UNI W/ Pelvis 2-3 Views IMPRESSION: Moderate right hip arthrosis without fracture or suspicious osseous lesion. However, hip and pelvic fractures in patients of this age can be subtle. If there is strong clinical suspicion of a fracture, recommend further evaluation with CT Age consistent left hip and SI joint arthrosis Electronically Signed: Daryl Collier MD at 11:52 EDT ,
--- NOTE | 2022-05-10 13:34 | CT_ITS ---
STUDY: CT RIGHT HIP WITHOUT CONTRAST REASON FOR EXAM: Male, 71 years old. RIGHT HIP PAIN X-SEVERAL WEEKS RADIATION DOSAGE (If Supplied By Facility): CTDIvol = ( 44.12 ) mGy, DLP = ( 1468.93 ) mGycm Individualized dose optimization techniques were used for this CT. ? TECHNIQUE: Transaxial CT imaging of the hip (pelvis) was performed. Coronal and sagittal images were reformatted. COMPARISON: Pelvic x-ray dated May 10, 2022 FINDINGS: The right hip joint is moderately to severely narrowed. There is mild cortical spurring of the right femoral head neck junction and acetabulum. Mild subchondral cystic changes are also present in the far anterior aspect of the acetabular roof . A small right hip joint effusion is also present. No fracture or displaced bony fragment is seen. No loose bodies are present. There is no evidence of avascular necrosis. Moderate fatty atrophy of the right gluteal muscles noted. There is no visualized right hip bursal distention. Atherosclerotic calcifications are present. The visualized intrapelvic structures are grossly unremarkable. 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 Normal visualized superior and inferior pubic rami and ischial tuberosities. CT/Extremity Lower without Contra IMPRESSION: 1. Moderate to severe right hip joint space narrowing Electronically Signed: Jake Paulson MD at 14:21 EDT ,
--- NOTE | 2022-05-10 13:45 | ED.VIS.LOWEX ---
HPI History of Present Illness Chief Complaint: Lower Extremity Injury Narrative Narrative: 71-year-old male with right hip and right thigh pain. He reports this has been going on for about a month. He states he was shoveling snow and after he was shoveling and noticed that there was pain in the right hip. This initially was in the lateral aspect of the right hip but now feels like it is in the medial part of the thigh. He states he can ambulate any causes hobbling. When he tries to stand and bear weight in 1 spot though he states that he can barely hold himself up. He denies any direct trauma. No numbness or tingling. No history of hip surgery. He states he tried to call his orthopedic doctor but there is a month wait. PFSH PFSH Medical History Hypertension Home Medications oxycodone-acetaminophen 5 mg-325 mg tablet (Endocet) 1 tab PO Q6H PRN pain 3 days #12 tabs 05/10/21 [Rx Last Taken Unknown] Allergy/AdvReac Type Severity Reaction Status Date / Time No Known Allergies Allergy Verified 05/10/22 11:20 Family History no significant family his Surgical History Hx of appendectomy Hx of arthroscopy of left knee Hx of arthroscopy of shoulder Hx of tonsillectomy Hx of total knee replacement Social History Smoking Status: Former smoker ROS ROS ED Constitutional Constitutional ED: Denies chills or fever(s) Eyes Eyes: Denies change in vision or diplopia ENT ENT ED: Denies rhinorrhea or sore throat Cardiovascular Cardiovascular: Denies chest pain or palpitations Respiratory/Chest Respiratory/Chest: Denies cough or dyspnea Gastrointestinal Gastrointestinal: Denies abdominal pain or constipation Genitourinary Genitourinary ED: Denies dysuria or hematuria Musculoskeletal Musculoskeletal: Reports other Details: Right hip and right medial thigh pain ; Denies arthralgias or back pain Integumentary Denies abscess Neurologic Neurologic: Denies headache(s) or paresthesias EXAM Physical Exam Const Vital Signs: 05/10/22 11:18 Temperature 98 F Temperature Source Temporal Pulse Rate 78 Respiratory Rate 16 Blood Pressure 165/75 H Blood Pressure Mean 105 Pulse Ox 96 Oxygen Delivery Method Room Air Positive well nourished General Appearance ED: NAD HEENT Reports moist mucous membranes normocephalic Resp normal respiratory effort and no retractions Cardio regular rate and regular rhythm Extremity Extremity Narrative: Tenderness palpation over the right greater trochanter however there is a negative logroll. Patient able to flex the hip up off the bed with some difficulty. Right knee extensor linda intact. Patient also able to flex and extend the right knee while the right hip is flexed off the bed. No obvious deformities. Neuro oriented x3 and CN's II-XII intact bilaterally Sensorium / Orientation: alert Motor Exam: strength 5/5 throughout Psych mental status grossly normal Skin no wounds MDM MDM MDM Narrative Medical decision making narrative: Patient presenting with a month of pain in the right hip. He states he was initially lateral but now it feels on the medial side. He is not sure if it is a muscle pain but he feels like it something skeletal in nature. X-ray of the right hip on my interpretation shows no acute fracture. The radiologist are persistent agrees. Radiologist does interpret this as a hip arthrosis. We will obtain a CT given the patient is having difficulty walking. Patient declines analgesia. I did obtain a CT of the right hip shows severe right hip joint narrow. Patient informed of findings. Patient is offered pain medication for home and he declines. He was offered prednisone burst and he declines. He states he is on gabapentin and is taking Tylenol he does not want a thing else. We went to options of following up with PCP and going through therapy versus following with orthopedics. He states he can follow-up with Dr. Darling. Patient states he has a walker and a cane. Patient discharged stable condition. Impression: 1. Right hip strain Radiography Diagnostic Testing: Clinical Impression(s) from Imaging Studies Hip/Pelvis X-Ray 05/10/22 11:30 IMPRESSION: Moderate right hip arthrosis without fracture or suspicious osseous lesion. However, hip and pelvic fractures in patients of this age can be subtle. 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 Moderate to severe right hip joint space narrowing Electronically Signed: Jake Paulson MD at 14:21 EDT Reading Location ID and State: [facility] / [place] , Service support , Discharge Plan Triage Chief Complaint: Lower Extremity Injury ED Provider: Jeronimo Toscano Dx/Rx/DC Orders Instructions: ED Hip Strain Prescriptions: No Action oxycodone-acetaminophen [Endocet] 5-325 mg tablet 1 tab PO Q6H PRN (Reason: pain) 3 Days Qty: 12 0RF Primary Care Provider: Rhoda Caceres Referrals: Rhoda Caceres MD [Primary Care Provider] - Juwan Darling MD [Med Staff - Active Staff] - Disposition Disposition: Home, Self Care
== END 2022-05-10 15:25 | disposition home or self-care (01) ==
PROVIDERS: Emergency Provider Student in an Organized Health Care Education/Training Program; PCP Family Medicine; Visit Provider Student in an Organized Health Care Education/Training Program
DX: S76.011A Strain of muscle, fascia and tendon of right hip, initial encounter (principal); Z87.891 Personal history of nicotine dependence; X58.XXXA Exposure to other specified factors, initial encounter
CPT/HCPCS: 73502; 73700; 99282

== ENCOUNTER → 2022-07-09 | Outpatient (CLI) | payer MEDICARE, OTHER, SELFPAY ==
--- NOTE | 2022-07-09 09:06 | EKG12_ITS ---
Test Reason : PRE-OP Blood Pressure : / mmHG Vent. Rate : 055 BPM Atrial Rate : 055 BPM P-R Int : 152 ms QRS Dur : 084 ms QT Int : 400 ms P-R-T Axes : 087 -09 040 degrees QTc Int : 382 ms Sinus bradycardia Otherwise normal ECG Confirmed by ANANTH JARVIS, EDUARDO ([id number]), metropolitan editor WOLF CHRISTIANSON ([id number]) on 07/12/2022 1:52:01 PM Referred By: Juwan Darling Confirmed By:EDUARDO WADSWORTH MD
[2022-07-09 10:14] LABS: Absolute Lymphocyte Count 1.63 X10^3/uL (0.83-4.51); Absolute Neutrophil Count 3.8 X10^3/uL (2.0-7.7); Basophil# 0.07 X10^3/uL; Basophil% 1.1 % (0-1); Eosinophil# 0.31 X10^3/uL; Eosinophils% 4.9 % (0-5); Hematocrit 37.7 % (40-54); Hemoglobin 12.7 g/dL (13.0-16.5); Lymphocyte # 1.63 X10^3/ul (0.83-4.51); Mean Corp Hgb Conc 33.7 g/dL (32-36); Mean Corpuscular Hgb 31.5 pg (27.0-32.0); Mean Corpuscular Volume 93.5 fL (80-94); Mean Platelet Vol. 8.4 fl (6.2-12.0); Monocyte# 0.48 X10^3/uL; Monocyte% 7.7 % (0-10); NRBC Flagged by Analyzer 0 % (0-5); Neutrophil # 3.76 X10^3/uL (2.7-7.7); Platelet Count 219 K/mm3 (150-450); RBC Distribution Width SD 44.1 fl (35.1-43.9); Red Blood Count 4.03 M/mm3 (4.6-6.2); White Blood Count 6.3 K/mm3 (4.4-11.0)
[2022-07-09 10:54] LABS: Anion Gap 5 (5-15); BUN 39 mg/dL (7-18); BUN/Creat Ratio 35.5 RATIO (10-20); Calcium,Total 9.2 mg/dL (8.5-10.1); Chloride 111 mmol/L (98-107); EST Glomerular Filtration Rate 70 mL/min (>60); Est Glom Filt Rate - Afr Amer 84 mL/min (>60); Glucose 101 mg/dL (74-106); Sodium Level 140 mmol/L (136-145)
== END | disposition home or self-care (01) ==
PROVIDERS: Referring Provider Specialist; Visit Provider Specialist
DX: Z01.810 Encounter for preprocedural cardiovascular examination (principal); M16.11 Unilateral primary osteoarthritis, right hip
CPT/HCPCS: 36415; 80048; 82040; 85025; 93005